=== PATIENT | female | born 1965 | race Caucasian/White ===

== ENCOUNTER 2021-06-14 16:11 | Emergency (ER) | payer MEDICARE, MEDICAID, SELFPAY ==
[2021-06-14 16:30] VITALS: BP 130/78; PULSE 97; RESP 18; TEMP 36.5; O2SAT 100
--- NOTE | 2021-06-14 17:15 | ED.URI ---
HPI - URI/Sore Throat General Chief Complaint: Upper Respiratory Infection Stated Complaint: cough,fever,chills Time Seen by Provider: 06/14/21 17:15 Source: patient and RN notes reviewed Mode of arrival: ambulatory Limitations: no limitations History of Present Illness HPI Narrative: 55-year-old female presents concern for 4-day history of cough, fever, chills. Reports Covid exposure. Reports she has been trying to stay hydrated and using Tylenol. MD elicited complaint: cough Related Data Allergies Allergy/AdvReac Type Severity Reaction Status Date / Time No Known Allergies Allergy Verified 06/14/21 17:24 Review of Systems Review of Systems: CONSTITUTIONAL: Reports malaise, chills or fever. EYES: Denies visual changes, redness, or discharge. ENT: Reports rhinorrhea, congestion, sinus pain. Denies otalgia and sore throat. CARDIOVASCULAR: Denies chest pain, palpitations, or edema. RESPIRATORY: Reports cough. Denies dyspnea. GASTROINTESTINAL: Denies abdominal pain, nausea, vomiting, diarrhea SKIN: Denies rash or itching. MUSCULOSKELETAL: Reports myalgia. NEUROLOGIC: Reports headache. All systems reviewed & are unremarkable except as noted in HPI and below PMFSH Comments At time of signature, agree with nursing past medical, surgical, social and family history. There is no relevant family history pertinent to the presenting complaint Exam Narrative: GENERAL: Well-appearing, well-nourished, and in no acute distress. HEAD: Normocephalic EYES: PERRLA, conjunctivae clear ENT: Nares clear, turbinates edematous and erythematous, clear discharge. Mucous membranes moist. TM pearly riddle with dull light reflex bilaterally; no tragal tenderness. Oropharynx not erythematous without lesions. Tonsils not enlarged and without exudate, no drooling, no hoarseness, no trismus, uvula midline. NECK: Supple. No lymphadenopathy CHEST: Clear to auscultation, breath sounds equal. No wheezing, rhonchi, rales, or stridor. No respiratory distress, speaks in full sentences. HEART: Regular rate and rhythm. No murmur heard. SKIN: Warm, dry, no rash. NEURO: Alert and oriented x3. PSYCH: Normal mood and affect Course Course Emergency Course: Patient is aware of diagnosis, understands and agrees to treatment plan. Anticipatory guidance given. Patient agrees to follow-up as directed and is aware of reasons to seek care at the emergency department. Portions of this record may have been created with voice recognition software Vital Signs Vital signs: Vital Signs Temperature 97.7 F 06/14/21 16:30 Pulse Rate 97 06/14/21 16:30 Respiratory Rate 18 06/14/21 16:30 Blood Pressure 130/78 06/14/21 16:30 Pulse Oximetry 100 06/14/21 16:30 Temperature 97.7 F 06/14/21 16:30 Pulse Rate 97 06/14/21 16:30 Respiratory Rate 18 06/14/21 16:30 Blood Pressure 130/78 06/14/21 16:30 Pulse Oximetry 100 06/14/21 16:30 Reviewed. MDM - URI/Sore Throat MDM Narrative Medical decision making narrative: Differential diagnosis considered: Gibson virus, strep pharyngitis, allergic rhinitis, upper respiratory tract infection, sinusitis, rhinosinusitis, nasopharyngitis. viral pharyngitis, otitis media, otitis externa, pneumonia, bronchitis, viral cough syndrome, viral syndrome, and influenza. Exam findings show no acute concerns or changes; patient is non-toxic appearing and is in no distress. Patient is appropriate for outpatient treatment and follow-up. Lab Data Attestation: I reviewed the patient's lab results. Critical Care Time Critical Care Time Critical Care Time: No Discharge Plan Discharge Clinical Impression: COVID-19 Patient Disposition: Home, Self-Care Condition: Stable Instructions: How to Recover from COVID-19 at Home (ED) Additional Instructions: Your rapid COVID test was positive today. The following recommendations have been made by the CDC and local Health Departments, regarding COVID-19: -Those individuals
== END 2021-06-14 17:35 | disposition home or self-care (01) ==
PROVIDERS: Emergency Provider Nurse Practitioner
DX: U07.1 COVID-19 (principal); R01.1 Cardiac murmur, unspecified
CPT/HCPCS: 87426; 99213; C9803; G0463

== ENCOUNTER 2022-04-07 10:43 | Emergency (ER) | payer MEDICARE, MEDICAID, SELFPAY ==
[2022-04-07 10:57] VITALS: BP 149/81; PULSE 91; RESP 16; TEMP 36.4; O2SAT 100
--- NOTE | 2022-04-07 11:10 | ED.URI ---
HPI - URI/Sore Throat General Chief Complaint: Upper Respiratory Infection Stated Complaint: uri Time Seen by Provider: 04/07/22 11:11 Source: patient and RN notes reviewed Mode of arrival: ambulatory Limitations: no limitations History of Present Illness HPI Narrative: 56 y/o female presented for c/o headache, fatigue, cough, and sinus pressure for over one week. Started with yellow eye drainage. Denies sob, wheezing, nausea, vomiting, fever or chills. States family has been sick with similar symptoms; they were negative for covid so she did not test. Taking saline spray and tylenol for symptoms. MD elicited complaint: cough Related Data Allergies Allergy/AdvReac Type Severity Reaction Status Date / Time No Known Allergies Allergy Verified 04/07/22 10:54 Review of Systems Review of Systems: CONSTITUTIONAL: Endorses malaise, denies chills, sweats, fever EYES: reports redness, drainage ENT: Reports rhinorrhea, congestion, sinus pain, denies epistaxis, otalgia, sore throat CARDIOVASCULAR: Denies chest pain, palpitations, edema RESPIRATORY: Reports cough, post nasal drainage. Denies dyspnea GASTROINTESTINAL: Denies abdominal pain, nausea, vomiting, diarrhea SKIN: Denies rash or itching MUSCULOSKELETAL: denies myalgia NEUROLOGIC: Denies headache Exam Narrative: GENERAL: Ill-appearing, nontoxic EYES: PERRLA, conjunctivae clear, no active yellow drainage ENT: Mucous membranes moist. TMs pearly riddle with dull light reflex bilaterally; no tragal tenderness. Oropharynx erythematous without lesions or exudate, no drooling, no hoarseness, no trismus, uvula midline. NECK: Supple. No lymphadenopathy CHEST: Clear to auscultation, breath sounds equal. HEART: Regular rate and rhythm. No murmur heard. SKIN: Warm, dry, no rash. NEURO: Alert and oriented x3. PSYCH: Normal mood and affect Course Course Emergency Course: Patient is aware of diagnosis, understands and agrees to treatment plan. Anticipatory guidance given. Patient agrees to follow-up as directed and is aware of reasons to seek care at the emergency department. Portions of this record may have been created with voice recognition software Level of Care: Express Care Visit Vital Signs Vital signs: Vital Signs Temperature 97.6 F 04/07/22 10:57 Pulse Rate 91 04/07/22 10:57 Respiratory Rate 16 04/07/22 10:57 Pulse Oximetry 100 04/07/22 10:57 Oxygen Delivery Room Air 04/07/22 10:57 Temperature 97.6 F 04/07/22 10:57 Pulse Rate 91 04/07/22 10:57 Respiratory Rate 16 04/07/22 10:57 Pulse Oximetry 100 04/07/22 10:57 Oxygen Delivery Room Air 04/07/22 10:57 reviewed MDM - URI/Sore Throat MDM Narrative Medical decision making narrative: Advised supportive measures and signs/symptoms to go to the ER. Pt is appropriate for outpt treatment and f/u. Differential Diagnosis Differential diagnosis: Likely upper respiratory infection, sinusitis and viral infection Discharge Plan Discharge Clinical Impression: Upper respiratory infection Patient Disposition: Home, Self-Care Condition: Stable Instructions: Antibiotic Form, Upper Respiratory Infection (ED) Additional Instructions: Recommend Flonase spray and Zyrtec (or Claritin/Aleksandra) Tylenol 1000mg every 8 hours as needed for pain Take medication as directed Symptomatic treatment includes: rest, push fluids, and humidifier Follow up with your primary care provider as needed in 1 week Go to the ER for worsening symptoms or concerns Prescriptions: New amoxicillin-pot clavulanate 875-125 mg tablet 1 tablet PO Q12H 7 Days Qty: 14 0RF Follow-up/Referrals: UNKNOWN,DOCTOR [Primary Care Provider] - Time of Disposition: 11:19
== END 2022-04-07 11:21 | disposition home or self-care (01) ==
PROVIDERS: Emergency Provider Nurse Practitioner Family
DX: J06.9 Acute upper respiratory infection, unspecified (principal)
CPT/HCPCS: 99213; G0463

== ENCOUNTER 2022-04-12 12:25 | Emergency (ER) | payer MEDICARE, MEDICAID, SELFPAY ==
--- NOTE | ~2022-04-12 | XR_ITS ---
EXAMINATION: XR chest 2V 04/12/2022 13:39 INDICATION: Wheezing and cough PROCEDURE: 2 view chest COMPARISON: Comparison to multiple prior studies sequentially, with oldest reviewed study dated 12/30. FINDINGS: The lungs are clear. The cardiomediastinal silhouette is within normal limits. There are no pleural effusions. There is no pneumothorax suspected. IMPRESSION: 1: NO ACUTE CARDIOPULMONARY DISEASE. Reviewed, dictated and finalized at location B.
[2022-04-12 12:36] VITALS: BP 144/109; PULSE 94; RESP 18; TEMP 36.3; O2SAT 100
--- NOTE | 2022-04-12 13:00 | ED.URI ---
HPI - URI/Sore Throat General Chief Complaint: Upper Respiratory Infection Stated Complaint: chest congestion Time Seen by Provider: 04/12/22 13:00 Source: patient, RN notes reviewed and old records reviewed Mode of arrival: ambulatory Limitations: no limitations History of Present Illness HPI Narrative: 56-year-old female presents to the [facility] feeling worse than she did 5 days ago. Was seen here and diagnosed with an upper respiratory/sinus infection and prescribed Augmentin. Patient states that she took a home COVID test which she reports was negative. Her granddaughter is positive with a virus and is being seen by the manager balance. MD elicited complaint: cough, sore throat, nasal congestion and sinus pain Related Data Allergies Allergy/AdvReac Type Severity Reaction Status Date / Time No Known Allergies Allergy Verified 04/07/22 10:54 Review of Systems Review of Systems: All systems reviewed & are unremarkable except as noted in HPI and below Constitutional: Constitutional: Reports as per HPI (Body aches), Denies chills, Reports fatigue and Reports fever(s) Eyes: Eyes: Reports no additional eye complaints ENT: Reports system reviewed and no additional complaints, except as documented Cardiovascular: Cardiovascular: Reports no additional cardiovascular complaints Respiratory: Respiratory: Reports as per HPI, Reports chest congestion and Reports cough Gastrointestinal: Gastrointestinal: Reports no additional gastrointestinal complaints Musculoskeletal: Musculoskeletal: Reports no additional musculoskeletal complaints Integumentary/Breasts: Skin/Breast: Reports system reviewed and no additional complaints, except as docu Neurologic: Reports system reviewed and no additional complaints, except as documented Psychiatric: Psychiatric: Reports no additional psychiatric complaints Allergic/Immunologic: Allergic/Immunologic: Reports no additional allergic/immunologic complaints PMFSH Comments At the time of my signature, I reviewed and agree with the nursing past medical, surgical, social, and family history. There is no relevant family history pertinent to the patient complaint. Exam Const: General: healthy appearing, no acute distress, alert and well nourished Nutritional Appearance: well nourished Orientation/consciousness: patient oriented x3 Limitations: no limitations HENMT: Head: normal to inspection Ears: external ears normal, TM's normal bilaterally and EAC's normal Face/Nose/Sinus: Normal external nose present and Normal nares present Face and sinus: normal facial exam Mouth: Yes Normal oral and palatal mucosa present, Yes lip normal and Yes moist mucous membranes Throat: posterior oropharynx normal and uvula midline Eyes: General: appearance normal, both eyes and all related structures Pupils: Equal, round and reactive pupils present Neck: Neck: normal visual inspection, no lymphadenopathy and no meningeal signs Chest: Chest palpation & inspection: normal inspection of the chest Resp: Effort & Inspection: normal respiratory effort and no use of accessory muscles Auscultation: no crackles, no rales, no rhonchi and wheezes expiratory wheezes and left upper Cardio: Rate: regular rate Rhythm: regular rhythm Skin: General skin exam: normal color Rashes: no rashes Wounds: no wounds Neuro: General: patient oriented x3, moves all extremities, no meningeal signs and no focal motor deficits Cranial nerves: Yes Equal, round and reactive pupils present Speech: normal speech Gait exam (Neuro): Normal gait present Extrem: General: normal to inspection, full ROM and capillary refill normal Psych: Appearance: grossly normal and well kempt Mental Status: mental status grossly normal Affect: normal affect Attitude: cooperative Thought content: Yes Normal thought content present Course Course Emergency Course: Discharge instructions reviewed with patient, as well as provided in writing per carol
== END 2022-04-12 13:50 | disposition home or self-care (01) ==
PROVIDERS: Emergency Provider Nurse Practitioner; PCP Family Medicine
DX: J10.1 Influenza due to other identified influenza virus with other respiratory manifestations (principal)
CPT/HCPCS: 71046; 87804; 99213; G0463

== ENCOUNTER 2022-05-28 18:10 | Emergency (ER) | payer MEDICARE, MEDICAID, SELFPAY ==
[2022-05-28 18:42] VITALS: BP 138/80; PULSE 89; RESP 16; TEMP 36.6; O2SAT 98
--- NOTE | 2022-05-28 19:03 | ED.SKABFB ---
HPI - Skin/Abscess/Foreign Bdy General Chief complaint: Skin/Abscess/Foreign Body Stated complaint: insect bite Time Seen by Provider: 05/28/22 19:04 Source: patient, RN notes reviewed and old records reviewed Mode of arrival: ambulatory Limitations: no limitations History of Present Illness HPI narrative: 56-year-old female presents weeks with redness and a wound that is not healing well for about a week. Had been washing it and using an antibiotic ointment. Has been leaving it open to air Related Data Allergies Allergy/AdvReac Type Severity Reaction Status Date / Time No Known Allergies Allergy Verified 04/07/22 10:54 Review of Systems Review of Systems: All systems reviewed & are unremarkable except as noted in HPI and below Constitutional: Constitutional: Reports no additional constitutional complaints Eyes: Eyes: Reports no additional eye complaints ENT: Reports system reviewed and no additional complaints, except as documented Cardiovascular: Cardiovascular: Reports no additional cardiovascular complaints, Denies chest pain and Denies dyspnea Respiratory: Respiratory: Reports no additional respiratory complaints, Denies chest congestion, Denies cough and Denies dyspnea Gastrointestinal: Gastrointestinal: Reports no additional gastrointestinal complaints, Denies abdominal pain, Denies nausea and Denies vomiting Musculoskeletal: Musculoskeletal: Reports no additional musculoskeletal complaints Integumentary/Breasts: Skin/Breast: Reports as per HPI and Reports erythema Neurologic: Reports system reviewed and no additional complaints, except as documented Psychiatric: Psychiatric: Reports no additional psychiatric complaints Allergic/Immunologic: Allergic/Immunologic: Reports no additional allergic/immunologic complaints PMFSH Comments At the time of my signature, I reviewed and agree with the nursing past medical, surgical, social, and family history. There is no relevant family history pertinent to the patient complaint. Exam Const: General: cooperative, healthy appearing, comfortable, no acute distress, well developed, alert and well nourished Nutritional Appearance: well nourished Orientation/consciousness: patient oriented x3 Limitations: no limitations HENMT: Head: normal to inspection Ears: hearing grossly normal bilaterally and external ears normal Face/Nose/Sinus: Normal external nose present, Normal nares present, Normal nasal mucous membranes and turbinates present and normal facial exam Face and sinus: normal facial exam Mouth: Yes Normal oral and palatal mucosa present, Yes lip normal and Yes moist mucous membranes Throat: posterior oropharynx normal and uvula midline Eyes: General: appearance normal, both eyes and all related structures Alignment and Position: alignment normal Periorbital: periorbital findings normal Conjunctivae: conjunctivae normal Pupils: Equal, round and reactive pupils present EOM: EOMs intact bilaterally Neck: Neck: normal visual inspection, full ROM, no lymphadenopathy and no meningeal signs Chest: Chest palpation & inspection: normal inspection of the chest Resp: Effort & Inspection: normal respiratory effort and able to speak in complete sentences Auscultation: clear to auscultation bilaterally, no crackles, no rales, no rhonchi and no wheezes Cardio: Rate: regular rate Rhythm: regular rhythm Back/Spine/Pelvis: Cervical Spine: cervical ROM normal Thoracic/Lumbar Spine: No thoracic spinal tenderness Skin: General skin exam: normal color and no rashes or lesions noted Lesions: no lesions Rashes: no rashes Other: Right posterior lower leg redness 4 x 2 and half with an open clear drainage of 1 and half by 1 cm. No swelling. No tenderness. Neuro: General: patient oriented x3, gait normal, tone normal, moves all extremities and no meningeal signs Cranial nerves: Yes Equal, round and reactive pupils present Cognition (Neuro): normal cognition Speech: normal sp
== END 2022-05-28 19:19 | disposition home or self-care (01) ==
PROVIDERS: Emergency Provider Nurse Practitioner; PCP Family Medicine
DX: L03.115 Cellulitis of right lower limb (principal); R01.1 Cardiac murmur, unspecified; I34.1 Nonrheumatic mitral (valve) prolapse; Z86.16 Personal history of COVID-19
CPT/HCPCS: 99213; G0463

== ENCOUNTER 2022-09-14 10:19 | Emergency (ER) | payer MEDICARE, MEDICAID, SELFPAY ==
[2022-09-14 10:33] VITALS: BP 120/67; PULSE 87; RESP 16; TEMP 36.6; O2SAT 100
--- NOTE | 2022-09-14 10:37 | ED.URI ---
HPI - URI/Sore Throat General Chief Complaint: Upper Respiratory Infection Stated Complaint: Sinus Source: patient and RN notes reviewed History of Present Illness HPI Narrative: 56 yo F presents to urgent care with complaints of congestion x 6 days. pt states she is having to sleep with her mouth open due to her congestion, causing her mouth and throat to be dry. Pt states she had a fever in the beginning of the week but nothing since. Pt denies any SOB, chest pain, ear pain, sore throat, vomiting, or diarrhea. Pt has taken Tylenol for her symptoms. Related Data Home Medications Medication Instructions Recorded Confirmed fluticasone propionate 50 intranasal 09/14/22 mcg/actuation nasal spray,suspension Allergies Allergy/AdvReac Type Severity Reaction Status Date / Time No Known Allergies Allergy Verified 09/14/22 10:36 Review of Systems Review of Systems: Pertinent positives and pertinent negatives per HPI. PMFSH Comments At the time of my signature, I reviewed and agree with the nursing past medical, surgical, social, and family history. There is no relevant family history pertinent to the patient complaint. Exam Narrative: GENERAL: This is a well-nourished, well-developed patient, in no apparent distress. HEAD: normocephalic, atraumatic. EYES: PERRL. Sclera clear/white. Vision is grossly intact. EARS: External ears normal, auditory canals clear and without drainage, TMs normal without perforation. Hearing grossly intact. NOSE: Congested. THROAT: Mucous membranes moist, posterior pharynx clear. NECK: Neck supple, non-tender without lymphadenopathy, masses or thyromegaly. CARDIOVASCULAR: Regular rate and rhythm without murmurs, gallops, or rubs. RESPIRATORY: Clear to auscultation. Breath sounds equal bilaterally. No wheezes, rales, or rhonchi. GASTROINTESTINAL: Abdomen soft, non-tender, nondistended. Bowel sounds are active. No hepato-splenomegaly, or palpable masses. No guarding. SKIN: warm, intact with no suspicious lesions or rash, good texture and turgor. NEURO: awake, alert, and oriented to person, place and time. There were no obvious focal neurologic abnormalities. Course Course Level of Care: Express Care Visit Vital Signs Vital signs: Vital Signs Temperature 97.9 F 09/14/22 10:33 Pulse Rate 87 09/14/22 10:33 Respiratory Rate 16 09/14/22 10:33 Blood Pressure 120/67 09/14/22 10:33 Pulse Oximetry 100 09/14/22 10:33 Oxygen Delivery Room Air 09/14/22 10:33 Temperature 97.9 F 09/14/22 10:33 Pulse Rate 87 09/14/22 10:33 Respiratory Rate 16 09/14/22 10:33 Blood Pressure 120/67 09/14/22 10:33 Pulse Oximetry 100 09/14/22 10:33 Oxygen Delivery Room Air 09/14/22 10:33 reviewed MDM - URI/Sore Throat MDM Narrative Medical decision making narrative: Return to urgent care or go to the ER for new or worsening symptoms. Avoid smoking/second-hand smoke. Continue to take Tylenol or Motrin for pain. Increase your Vitamin C intake. Use a humidifier or vaporizer at night. Take Medications as prescribed. Drink plenty of water. 8-10 glasses per day. Use flonase 2 times per day for 5 days then as needed Take mucinex 2 times per day and be sure to take with 8oz of water. Follow up with Primary provider if not getting better. Go to the ER for new or worsening symptoms. Pt was informed it would be ok to wait a few more days to see if her symptoms improved with OTC meds and Flonase BID before taking the Abx. Pt has Floanse at home. Pt gave verbal understanding. Differential Diagnosis Differential diagnosis: Likely upper respiratory infection, sinusitis and viral infection Critical Care Time Critical Care Time Critical Care Time: No Discharge Plan Discharge Clinical Impression: Sinusitis Qualifiers: Sinusitis location: unspecified location Chronicity: acute Recurrence: not specified as recurrent Qualified Code(s): J01.90 - Acute sinusitis, un
== END 2022-09-14 10:46 | disposition home or self-care (01) ==
PROVIDERS: Emergency Provider Nurse Practitioner Family; PCP Family Medicine
DX: J01.90 Acute sinusitis, unspecified (principal)
CPT/HCPCS: 99213; G0463

== ENCOUNTER 2022-11-22 10:45 | Emergency (ER) | payer MEDICARE, MEDICAID, SELFPAY ==
--- NOTE | 2022-11-22 10:51 | ED.URI ---
HPI - URI/Sore Throat General Chief Complaint: Upper Respiratory Infection Stated Complaint: Sore Throat Time Seen by Provider: 11/22/22 11:00 Source: patient Mode of arrival: ambulatory Limitations: no limitations History of Present Illness HPI Narrative: Patient is a 57-year-old female who presents with sore throat since last Friday. Also having runny nose, cough and intermittent low-grade fever. Patient has been taking a daily Zyrtec in taking Tylenol for pain/fever. Patient has been eating soft foods due to throat pain. Denies any ear pain, headache or shortness of breath. Patient states she has had prolonged COVID symptoms. Denies history of asthma, COPD, emphysema or diabetes. Patient takes a multivitamin every day but no other medication. Related Data Allergies Allergy/AdvReac Type Severity Reaction Status Date / Time No Known Allergies Allergy Verified 09/14/22 10:36 Review of Systems Review of Systems: All systems reviewed & are unremarkable except as noted in HPI and below Constitutional: Constitutional: Denies body ache(s), Denies chills, Denies fatigue, Reports fever(s), Denies headache(s), Denies malaise and Denies weakness Eyes: Eyes: Denies blurry vision, Denies itchy eyes and Denies loss of vision ENT: Denies otalgia, Denies headache(s), Reports nasal congestion, Denies sinus pain and Reports sore throat Cardiovascular: Cardiovascular: Denies chest pain, Denies irregular heart rhythm and Denies dyspnea Respiratory: Respiratory: Reports cough and Denies dyspnea Gastrointestinal: Gastrointestinal: Denies abdominal pain, Denies diarrhea, Denies nausea and Denies vomiting Musculoskeletal: Musculoskeletal: Denies back pain, Denies myalgias and Denies arthralgias Integumentary/Breasts: Skin/Breast: Denies pruritus and Denies rash Neurologic: Denies headache(s), Denies loss of vision and Denies weakness Psychiatric: Psychiatric: Reports no additional psychiatric complaints Endocrine: Endocrine: Denies fatigue Allergic/Immunologic: Allergic/Immunologic: Denies itchy eyes PMFSH Comments At time of signature, agree with nursing past medical, surgical, social and family history. There is no relevant family history pertinent to the presenting complaint. Exam Const: General: cooperative, healthy appearing, comfortable, no acute distress and well nourished Nutritional Appearance: well nourished Orientation/consciousness: patient oriented x3 Limitations: no limitations HENMT: Head: normal to inspection, normocephalic and atraumatic Ears: hearing grossly normal bilaterally, external ears normal, TM's normal bilaterally, EAC's normal and no periauricular adenopathy Face/Nose/Sinus: Normal external nose present, Abnormal mucous membranes and turbinates present erythematous bilateral and diffuse, normal facial exam, sinuses nontender and face symmetric Face and sinus: normal facial exam, sinuses nontender and face symmetric Mouth: Yes Normal oral and palatal mucosa present, Yes lip normal, Yes tongue normal, Yes Normal salivary glands and ducts present, Yes oropharynx normal and Yes moist mucous membranes Teeth and gingiva: dentition normal Throat: posterior oropharynx normal, tonsils normal and uvula midline Eyes: General: appearance normal, both eyes and all related structures Alignment and Position: alignment normal and position normal Periorbital: periorbital findings normal Eyelids: eyelids normal Pupils: Equal, round and reactive pupils present Neck: Neck: normal visual inspection, full ROM, no lymphadenopathy and supple Chest: Chest palpation & inspection: normal inspection of the chest and normal palpation of entire chest wall Resp: Effort & Inspection: normal respiratory effort and able to speak in complete sentences Auscultation: clear to auscultation bilaterally, no crackles, no rales, no rhonchi and no wheezes Cardio: Rate: regular rate Rhythm: regular rhythm Heart sounds: S1 normal heart s
[2022-11-22 11:02] VITALS: BP 114/63; PULSE 110; RESP 12; TEMP 35.7; O2SAT 100
== END 2022-11-22 11:30 | disposition home or self-care (01) ==
PROVIDERS: Emergency Provider Nurse Practitioner Family; PCP Family Medicine
DX: J06.9 Acute upper respiratory infection, unspecified (principal); R05.9 Cough, unspecified; I34.1 Nonrheumatic mitral (valve) prolapse; R01.1 Cardiac murmur, unspecified; Z86.16 Personal history of COVID-19
CPT/HCPCS: 87081; 87880; 99213; G0463

== ENCOUNTER 2022-12-06 13:16 | Emergency (ER) | payer MEDICARE, MEDICAID, SELFPAY ==
[2022-12-06 13:24] VITALS: BP 126/88; PULSE 102; RESP 16; TEMP 36.8; O2SAT 100
--- NOTE | 2022-12-06 13:24 | ED.URI ---
HPI - URI/Sore Throat General Chief Complaint: Upper Respiratory Infection Stated Complaint: Sinus Time Seen by Provider: 12/06/22 13:25 Source: patient Mode of arrival: ambulatory Limitations: no limitations History of Present Illness HPI Narrative: Patient is a 57-year-old female who presents with left facial swelling since Friday. Patient was seen here 11/22 for upper respiratory infection. Was given steroids and started taking allergy medicine. Patient states symptoms resolved and was doing yd work this weekend. Patient does report mild tenderness on palpation to face. Denies any changes in vision, numbness or tingling to phase or difficulty speaking. Related Data Allergies Allergy/AdvReac Type Severity Reaction Status Date / Time No Known Allergies Allergy Verified 09/14/22 10:36 Review of Systems Review of Systems: All systems reviewed & are unremarkable except as noted in HPI and below Constitutional: Constitutional: Denies body ache(s), Denies chills, Denies fatigue, Denies fever(s), Denies headache(s), Denies malaise and Denies weakness Eyes: Eyes: Denies blurry vision, Denies itchy eyes and Denies loss of vision ENT: Denies otalgia, Reports facial pain, Denies headache(s), Denies nasal congestion, Denies sinus pain, Denies sore throat and Reports other (Facial swelling) Cardiovascular: Cardiovascular: Denies chest pain, Denies irregular heart rhythm and Denies dyspnea Respiratory: Respiratory: Reports cough and Denies dyspnea Gastrointestinal: Gastrointestinal: Denies abdominal pain, Denies diarrhea, Denies nausea and Denies vomiting Musculoskeletal: Musculoskeletal: Denies back pain, Denies myalgias and Denies arthralgias Integumentary/Breasts: Skin/Breast: Denies pruritus and Denies rash Neurologic: Denies headache(s), Denies loss of vision and Denies weakness Psychiatric: Psychiatric: Reports no additional psychiatric complaints Endocrine: Endocrine: Denies fatigue Allergic/Immunologic: Allergic/Immunologic: Denies itchy eyes PMFSH Comments At time of signature, agree with nursing past medical, surgical, social and family history. There is no relevant family history pertinent to the presenting complaint. Exam Const: General: cooperative, healthy appearing, comfortable, no acute distress and well nourished Nutritional Appearance: well nourished Orientation/consciousness: patient oriented x3 Limitations: no limitations HENMT: Head: normal to inspection, normocephalic and atraumatic Ears: hearing grossly normal bilaterally, external ears normal, TM's normal bilaterally, EAC's normal and no periauricular adenopathy Face/Nose/Sinus: Normal external nose present, Normal nasal mucous membranes and turbinates present, normal facial exam, sinuses nontender and face symmetric Face and sinus: normal facial exam, no erythema, edema on the left malar area and Facial tenderness on exam of face and sinuses on the left malar area Mouth: Yes Normal oral and palatal mucosa present, Yes lip normal, Yes tongue normal, Yes Normal salivary glands and ducts present, Yes oropharynx normal and Yes moist mucous membranes Teeth and gingiva: dentition normal Throat: posterior oropharynx normal, tonsils normal and uvula midline Eyes: General: appearance normal, both eyes and all related structures Alignment and Position: alignment normal and position normal Periorbital: periorbital findings normal Eyelids: eyelids normal Pupils: Equal, round and reactive pupils present Neck: Neck: normal visual inspection, full ROM, no lymphadenopathy and supple Chest: Chest palpation & inspection: normal inspection of the chest and normal palpation of entire chest wall Resp: Effort & Inspection: normal respiratory effort and able to speak in complete sentences Auscultation: clear to auscultation bilaterally, no crackles, no rales, no rhonchi and no wheezes Cardio: Rate: regular rate Rhythm: regular rhythm Heart sounds: S1 normal hear
== END 2022-12-06 13:46 | disposition home or self-care (01) ==
PROVIDERS: Emergency Provider Nurse Practitioner Family; PCP Family Medicine
DX: J01.00 Acute maxillary sinusitis, unspecified (principal); R01.1 Cardiac murmur, unspecified; I34.1 Nonrheumatic mitral (valve) prolapse; Z86.16 Personal history of COVID-19
CPT/HCPCS: 99213; G0463

== ENCOUNTER 2023-05-06 11:30 | Observation (INO) | payer MEDICARE, MEDICAID, SELFPAY ==
[2023-05-06] VITALS (21 sets, daily range): BP systolic 114–155; BP diastolic 72–84; PULSE 88–99; RESP 12–18; TEMP 36.2–37.1; O2SAT 98–100; BMI 21.1
--- NOTE | ~2023-05-06 | US_ITS ---
EXAMINATION: US abdomen limited DATE: 05/07/2023 08:31 INDICATION: Possible gallbladder hydrops TECHNIQUE: Multiple grayscale and Doppler ultrasound images of the abdomen were obtained. COMPARISON: CT, 05/06/2023 FINDINGS: Bowel gas obscures visualization of the pancreas. The visualized portions of the pancreas a re unremarkable. The liver is normal with normal echogenicity and echotexture. No surface nodularity. Normal hepatopetal flow in the main portal vein. The gallbladder is normal with no abnormal wall thi ckening, pericholecystic fluid or stones. The normal common bile duct measures 6 mm. There was no son ographic Geller sign. IMPRESSION: 1. Normal sonographic study of the gallbladder. Reviewed, dictated and finalized at location F. RSITY MANAGER
--- NOTE | ~2023-05-06 | CT_ITS ---
EXAMINATION: CT abdomen pelvis w con DATE: 05/06/2023 17:45 INDICATION: jaundiced, anemic TECHNIQUE: Computed tomography (CT) of the abdomen and pelvis was performed with 100 mL Omnipaque-350 intravenous contrast. Automated exposure control and iterative reconstruction technique were employe d. The dose-length product was 246.22 mGy-cm. COMPARISON: None. FINDINGS: Lower thorax: Unremarkable Liver: Mild intrahepatic bile duct dilation. Biliary/Gallbladder: Gallbladder is borderline enlarged. No extrahepatic bile duct dilation. Pancreas: No mass or duct dilation. Spleen: Normal. Adrenals:No mass. Kidneys: No suspicious mass or obstructing stone. Dilated left renal pelvis. GI tract: Mildly dilated loops of small bowel in the lower abdomen, no transition point. No large bow el dilation. Appendix not confidently visualized. Mesentery/Peritoneum: No ascites, mass, or free air. Retroperitoneum: No mass. Pelvis: Pelvic organs are within normal limits. Soft Tissues: Soft tissues and body wall unremarkable. Bones: No acute osseous finding. IMPRESSION: Mild intrahepatic bile duct dilation. Borderline gallbladder hydrops. Dilated left renal pelvis, may represent chronic UPJ obstruction. Mild small bowel dilation in the lower abdomen without focal transition point. May represent enteriti s or ileus. Early obstruction not excluded. Reviewed, dictated and finalized at location K. INTERN IMPRESSION: Mild intrahepatic bile duct dilation. Borderline gallbladder hydrops. Dilated left renal pelvis, may represent chronic UPJ obstruction. Mild small bowel dilation in the lower abdomen without focal transition point. May represent enteritis or ileus. Early obstruction not excluded.
[2023-05-06 12:30] LABS: Basophils Absolute Auto 0.1 K/mm3 (0.0-0.1); Basophils Percent Auto 0.8 % (0.2-1.2); Eosinophils Absolute Auto 0.3 K/mm3 (0-0.3); Eosinophils Percent Auto 4.7 % (0-4.4); Hematocrit 26.6 % (37.0-47.0); Immature Granulocyte Absolute 0.02 K/mm3 (0.00-0.031); Immature Granulocyte Percent A 0.3 % (0-0.5); Lymphocytes Absolute Auto 0.96 K/mm3 (0.9-3.2); Lymphocytes Percent Auto 13.4 % (18.3-44.2); Mean Corpuscular HGB Conc 23.7 g/dl (32-36); Mean Corpuscular Hemoglobin 15.6 pg (26-34); Mean Corpuscular Volume 65.7 fl (80-100); Mean Platelet Volume 9.5 fl (7.4-10.4); Monocytes Absolute Auto 0.6 K/mm3 (0.1-0.6); Monocytes Percent Auto 7.6 % (2.6-8.5); Neutrophils Absolute Auto 5.3 K/mm3 (1.3-6.7); Neutrophils Percent Auto 73.2 % (45.5-73.1); Platelet Count Result 459 k/mm3 (150-375); Red Blood Count 4.05 M/mm3 (4.2-5.4); Red Cell Distribution Width 22.5 % (11.5-14.5); White Blood Count 7.2 K/mm3 (4.5-10.0)
[2023-05-06 12:36] LABS: Hemoglobin 6.3 g/dL (12.0-15.0)
[2023-05-06 12:37] LABS: Immature Reticulocyte Fraction 17.1 % (3.0-15.9); Reticulocyte Hemoglobin Conten 13.2 pg (28.2-35.7); Reticulocyte Percent 1.65 % (0.7-4.3); Reticulocytes Absolute 0.07 M/mm3 (0.02-0.1)
[2023-05-06 12:39] LABS: Alanine Aminotransferase 38 U/L (6-35); Albumin Level 4.2 g/dL (3.5-5.1); Alkaline Phosphatase 104 U/L (38-126); Anion Gap 10 mmol/L (8-16); Aspartate Amino Transferase 43 U/L (14-36); Bilirubin,Total 0.4 mg/dL (0.2-1.3); Blood Urea Nitrogen 10 mg/dL (7-17); Calcium 8.4 mg/dL (8.4-10.2); Carbon Dioxide 25 mmol/L (22-30); Chloride 105 mmol/L (98-107); Estimated CRCL calculation 92 ml/min; Estimated Glomerular Filt Rate > 60; Glucose 93 mg/dL (65-110); Potassium 4.1 mmol/L (3.4-5.0); Sodium 140 mmol/L (137-145)
[2023-05-06 12:41] LABS: Lactate Dehydrogenase 222 U/L (120-246)
[2023-05-06 12:42] LABS: INR 1.1; Prothrombin Time 14.2 Seconds (11.1-14.7)
[2023-05-06 12:43] LABS: Partial Thromboplastin Time 24.9 SECONDS (22.3-36.8)
[2023-05-06 12:49] LABS: Transferrin 321 mg/dL (206-381)
--- NOTE | 2023-05-06 12:57 | ED.RECABL ---
HPI - Recheck/Abnormal Lab/Rx General Chief Complaint: Recheck/Abnormal Lab/Rx Stated Complaint: needs transfusion Time Seen by Provider: 05/06/23 12:16 Source: patient and family (son) Limitations: no limitations History of Present Illness HPI narrative: Patient is a 57 year old who presents for her labs to be rechecked and possible blood transfusion. She was sent by her PA. She has a history of anemia but has never required a transfusion. Patient had labs checked by a nurses aide for alopecia related to covid that she had earlier in the month. They showed low Fe and low Hgb. 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 Patient has these results on her phone as follows: TIBC 429, WIBC 418, Fe 11, FeSaturation 3, Ferritin 2, Hgb 6.2. Patient had outpatient vein procedure performed in June and January but otherwise no large surgical procedures recently. Denies hemoptysis, hematuria, melena, hematochezia, vaginal bleeding. She has never had a colonoscopy but performed the Cologuard test which was normal. She has not been dizzy or lightheadeness, just tired/incrased fatigue. Denies chest pain, shortness of breath. States she has mitral valve prolapse. LMP 2000 ; partial hysterectomy. Patient adopted thus family hx unknown. Related Data Home Medications Medication Instructions Recorded Confirmed No Home Medications 05/06/23 05/06/23 Allergies Allergy/AdvReac Type Severity Reaction Status Date / Time No Known Allergies Allergy Verified 05/06/23 12:09 [facility] Past Medical History Medical History Anemia Surgical History Surgical History History of partial hysterectomy Family History Family History Other Adopted Social History Social History (Updated 05/07/23 @ 11:16 by Lilliana Kelly MD) Social History: Has a son Smoking status: Never smoker Second hand tobacco smoke exposure: No Alcohol intake: current Drinks per week: 1 Substance use: never Substance use type: does not use Lack of Transportation: No Lack of Food: Never True Current Housing: I Have Housing Concerned About Future Housing: No Difficulty Paying Gas/Electric Bills: No Difficulty Paying for Meds: No Currently Unemployed: No Education: Associate Degree Difficulty w/ Childcare or Family Care: No Spiritual care concerns: No Exam Narrative: GENERAL:well nourished, in no acute distress. HEAD: Normocephalic, atraumatic. Eyes: conjunctival pallor; no photophobia ENT: Nares clear, no rhinorrhea or epistaxis. NECK: Supple. No meningismus CHEST: No respiratory distress. Spekaing in full sentences HEART: Regular rate and rhythm. No murmur heard. Normal peripheral pulses. ABDOMEN: Soft, nontender to palpation, nondistended. EXTREMITIES: Normal range of motion. No edema. SKIN: Warm, dry, no rash. Appears slightly jaundiced NEURO: No focal deficits. Alert and oriented x3. PSYCH: Normal mood and affect. Course Vital Signs Vital signs: Vital Signs Temperature 98.7 F 05/06/23 12:01 Pulse Rate 96 05/06/23 12:01 Respiratory Rate 13 05/06/23 12:01 Blood Pressure 143/77 H 05/06/23 12:01 Pulse Oximetry 100 05/06/23 12:01 Oxygen Delivery Room Air 05/06/23 12:01 Temperature 98.8 F 05/07/23 06:00 Pulse Rate 78 05/07/23 09:13 Respiratory Rate 16 05/07/23 06:00 Blood Pressure 132/76 05/07/23 06:00 Pulse Oximetry 97 05/07/23 09:13 Oxygen Delivery Room Air 05/07/23 09:13 MDM - Recheck/Abnormal Lab/Rx MDM Narrative Medical decision making narrative: Patient presents for labs to be rechecked and possible need of blood transfusion. In anticipation of possible transfusion, anemia work up labs are ordered. Patient has conjunctival pallor b
[2023-05-06 12:58] LABS: Anisocytosis 2+ (NORMAL); Hypochromasia 2+ (NORMAL); Platelet Estimate Adequate (Adequate); Target Cells 1+ (NORMAL)
[2023-05-06 12:59] LABS: Macrocytosis 1+ (NORMAL); Ovalocytes 1+ (NORMAL); Schistocytes Rare (NORMAL)
[2023-05-06 13:45] LABS: Folic Acid 6.2 ng/mL (2.76->20)
[2023-05-06] MEDS: SODIUM CHLORIDE 0.9% IV 250 ML 30 ML IV CONT ×2 (14:19→18:13)
[2023-05-06] MEDS: TUBING, BLOOD PLUM PUMP TUBING 1 EACH XX ×2 (14:20→18:12)
[2023-05-06 16:35] LABS: Hematocrit 25.8 % (37.0-47.0)
[2023-05-06 16:38] LABS: Hemoglobin 6.6 g/dL (12.0-15.0)
--- NOTE | 2023-05-06 19:05 | ADMGEN ---
This patient, Viktoriya Laurent, was admitted to 3 [facility] Surg Room 330-02. Patient/family oriented to hospital policies and general routines including ID bracelet, bed and alarms, visiting hours, pain management, procedures, bathroom and other care routines, personal items, smoking policy, room service/diet, and visiting hours. Information on how to activate the Rapid Response Team has been discussed. Patient/Family are encouraged to report perceived risks to care and to ask questions if they do not understand what they are told or what they should do.
--- NOTE | 2023-05-06 20:28 | PM.IMHP ---
H&P: HPI History of Present Illness Date/Time: 05/06/23 20:28 Chief Complaint: Low hemoglobin Narrative: This is a 57-year-old female with past medical history significant for chronic iron deficiency anemia, patient is a vegetarian, COVID. Patient on normal routine err E lab work was found to be anemic and was sent over to the emergency room for evaluation. Patient is now receiving blood transfusion. States that has been feeling tired, fatigued, denies any hematemesis, coffee-ground emesis, melena, bright red blood per rectum, nausea shortness of breath, no palpitations, no dizziness, no lightheadedness, no fevers no rigors no chills. Initial hemoglobin was 6.6 MCV 65. EXAMINATION: CT abdomen pelvis w con DATE: 05/06/2023 17:45 INDICATION: jaundiced, anemic TECHNIQUE: Computed tomography (CT) of the abdomen and pelvis was performed with 100 mL Omnipaque-350 intravenous contrast. Automated exposure control and iterative reconstruction technique were employed. The dose-length product was 246.22 mGy-cm. COMPARISON: None. FINDINGS: Lower thorax: Unremarkable Liver: Mild intrahepatic bile duct dilation.? Biliary/Gallbladder: Gallbladder is borderline enlarged. No extrahepatic bile duct dilation. Pancreas: No mass or duct dilation. Spleen: Normal. Adrenals:No mass. Kidneys: No suspicious mass or obstructing stone. Dilated left renal pelvis. GI tract: Mildly dilated loops of small bowel in the lower abdomen, no transition point. No large bowel dilation. Appendix not confidently visualized. Mesentery/Peritoneum: No ascites, mass, or free air. Retroperitoneum: No mass. Pelvis: Pelvic organs are within normal limits. Soft Tissues: Soft tissues and body wall unremarkable. Bones:? No acute osseous finding. IMPRESSION: Mild intrahepatic bile duct dilation. Borderline gallbladder hydrops. Dilated left renal pelvis, may represent chronic UPJ obstruction. Mild small bowel dilation in the lower abdomen without focal transition point. May represent enteritis or ileus. Early obstruction not excluded. Review of Systems Review of Systems: Low hemoglobin, fatigue. Constitutional: Constitutional: Denies chills, Reports fatigue, Denies fever(s), Denies malaise, Denies night sweats and Denies weakness Eyes: Eyes: Denies change in vision ENT: Denies dysphagia and Denies odynophagia Cardiovascular: Cardiovascular: Denies chest pain, Denies radiating jaw, neck or arm pain, Denies palpitations and Denies dyspnea Respiratory: Respiratory: Denies cough and Denies excessive phlegm production Gastrointestinal: Gastrointestinal: Denies abdominal pain, Denies melena, Denies hematochezia, Denies coffee ground emesis, Denies GI cramping, Denies dyspepsia, Denies heartburn, Denies diarrhea, Denies nausea and Denies vomiting Genitourinary: Genitourinary: Denies dysuria Musculoskeletal: Musculoskeletal: Denies back pain and Denies arthralgias Integumentary/Breasts: Skin/Breast: Denies rash Neurologic: Denies vertigo, Denies dizziness, Denies focal weakness and Denies Sensory deficit (Neuro) Psychiatric: Psychiatric: Reports no additional psychiatric complaints and Reports as per HPI Endocrine: Endocrine: Denies change in libido, Denies cold intolerance, Denies fatigue, Denies flushing, Denies heat intolerance, Denies polyphagia, Denies polydipsia and Denies palpitations Hematologic/Lymphatic: Hematologic/Lymphatic: Reports no additional hematologic/lymphatic complaints and Reports as per HPI Allergic/Immunologic: Allergic/Immunologic: Reports no additional allergic/immunologic complaints and Reports as per HPI PMFSH Social History Social History Smoking status: Never smoker Second hand tobacco smoke exposure: No Alcohol intake: current Drinks per week: 1 Substance use: never Substance use type: does not use Lack of Transportation: No Lack of Food: Never True C
[2023-05-06 23:40] LABS: Iron 17 ug/dL (37-170)
[2023-05-06 23:50] LABS: Percent Iron Saturation 4 % (20-50)
[2023-05-07 00:17] LABS: Ferritin 2.94 ng/mL (11.1-264)
[2023-05-07 06:00] VITALS: BP 132/76; PULSE 86; RESP 16; TEMP 37.1; O2SAT 98
[2023-05-07 06:22] LABS: Hematocrit 30.6 % (37.0-47.0); Hemoglobin 8.4 g/dL (12.0-15.0); Mean Corpuscular HGB Conc 27.5 g/dl (32-36); Mean Corpuscular Hemoglobin 19.1 pg (26-34); Mean Corpuscular Volume 69.7 fl (80-100); Platelet Count Result 361 k/mm3 (150-375); Red Blood Count 4.39 M/mm3 (4.2-5.4); Red Cell Distribution Width 23.9 % (11.5-14.5); White Blood Count 5.5 K/mm3 (4.5-10.0)
[2023-05-07 09:13] VITALS: PULSE 78; O2SAT 97
[2023-05-07 14:00] VITALS: BP 138/75; PULSE 90; RESP 18; TEMP 36.5; O2SAT 100
[2023-05-07 14:30] LABS: Hematocrit 31.3 % (37.0-47.0); Hemoglobin 8.7 g/dL (12.0-15.0)
[2023-05-07] MEDS: IRON SUCROSE COMPLEX 500 MG in SODIUM CHLORIDE 0.9% IV 250 ML 78.57 MG IVPB (14:48)
--- NOTE | 2023-05-07 14:57 | PM.DS ---
DS: Admitting Diagnosis Discharge Date 05/07/23 Admitting Diagnosis Anemia DS: Discharge Diagnosis Discharge Diagnosis (1) Hypochromic microcytic anemia: Code(s): D50.9 - Iron deficiency anemia, unspecified Status: Acute DS: Summary Hospital Course Hospital Course: This is a 57-year-old female past medical history of chronic iron deficiency anemia. She is not menstruating and has a history of a hysterectomy. Patient is a vegetarian. Patient was having normal lab work done when she was found to have a very low hemoglobin and was sent to the ED to be evaluated. Her hemoglobin was found to be 6.3 and she was given [address] of the abdomen pelvis revealed mild intrahepatic bile duct dilation, dilated renal pelvis and small-bowel dilation and lower abdomen. There is no evidence of bleed in the abdomen. Right upper quadrant ultrasound negative for acute cholecystitis. She denies any bright red blood per rectum, melena or dark stools. Over the past month she had been feeling progressively more tired but otherwise nothing out of the normal for her. anemia labs revealed an iron of 17, % saturation of 4 and ferritin of 2.9. She received 1 infusion of iron and advised to take daily supplementation. Her B12 and folate were within a good range. After patient's transfusion her hemoglobin was 8.4 and repeat 6 hours later was 8.7. Patient feeling much better. Advised to follow-up with her PCP within the next week. She is planned to have a colonoscopy in the upcoming weeks. Labs and vital signs are stable and she is medically clear for discharge at this time. Time Spent with Patient Time attestation: Total time spent providing and/or coordinating discharge services: Exam Narrative: GENERAL: Comfortable, no acute distress HENMT: moist mucous membranes EYES: EOM intact b/l NECK: no lymphadenopathy RESPIRATORY: clear to auscultation CARDIO: RRR GI: soft, nontender, bowel sounds present SKIN: no rashes EXTREMITIES: no edema, redness or tenderness DS: Data Data Completed and Pending Labs on day of discharge: Labs from last 24 hours 05/07/23 05/07/23 05/06/23 14:22 05:50 16:26 WBC 5.5 RBC 4.39 Hgb 8.7 L 8.4 L 6.6 L* Hct 31.3 L 30.6 L 25.8 L MCV 69.7 L D MCH 19.1 L D MCHC 27.5 L RDW 23.9 H Plt Count 361 MPV 9.0 Iron TIBC % Saturation Ferritin TSH (Reflex) Blood Type Antibody Screen Crossmatch 05/06/23 05/06/23 15:27 12:17 WBC RBC Hgb Cancelled Hct Cancelled MCV MCH MCHC RDW Plt Count MPV Iron 17 L TIBC 446 % Saturation 4 L Ferritin 2.94 L TSH (Reflex) 1.940 Blood Type A Positive Antibody Screen Negative Crossmatch See Detail Discharge Plan Discharge Attending physician on discharge: Rafi Hammonds Discharging Clinician: Merna Herrera Patient Disposition: Home, Self-Care Activity: as tolerated Diet: regular Discharge Instructions: Discharge disposition: Take medications as prescribed Advise iron supplementation as an outpatient. To help with constipation can take MiraLax or Colace tablet as needed. Please take Vitamin C, such as orange juice, with iron supplement. Do not take Iron supplement with milk Monitor blood pressures Avoid social areas, you wear a mask when in social settings Encouraged to continue with yearly vaccinations Return to the emergency department if he developed sudden shortness of breath, chest pain, dizziness, loss of consciousness, nausea, vomiting, upset stomach or intractable diarrhea Return to the emergency department if you develop fever greater than 100.4 Outpatient labs ordered and advise repeat labs in 1 week. Can follow up with PCP or GI reguarding lab results. Please follow-up with GI as an outpatient. Contact information attached. Follow-up with the primary care physician within 1-2 weeks Thank you for choosing
== END 2023-05-07 18:50 | disposition home or self-care (01) ==
LOC: ANHED 12:31 → ANH3MEDSUR 05-07 02:16
PROVIDERS: Emergency Medicine; Internal Medicine Critical Care Medicine; Physician Assistant; Admitting Provider Internal Medicine; Emergency Provider Student in an Organized Health Care Education/Training Program; PCP Family Medicine; Visit Provider Internal Medicine
DX: D50.9 Iron deficiency anemia, unspecified (principal); K83.9 Disease of biliary tract, unspecified; N28.89 Other specified disorders of kidney and ureter; K63.89 Other specified diseases of intestine; F10.90 Alcohol use, unspecified, uncomplicated; L65.9 Nonscarring hair loss, unspecified; Z86.16 Personal history of COVID-19
CPT/HCPCS: 36415; 36430; 74177; 76705; 80053; 82607; 82728; 82746; 83540; 83550; 83615; 84443; 84466; 85014; 85018; 85025; 85027; 85046; 85610; 85730; 86850; 86900; 86901; 86923; 96360; 96361; 96365; 96366; 99285; G0378; J1756; J7050; P9016; Q9967

== ENCOUNTER 2023-06-23 10:51 | Emergency (ER) | payer MEDICARE, MEDICAID, SELFPAY ==
[2023-06-23 11:05] VITALS: BP 125/91; PULSE 89; RESP 16; TEMP 37.2; O2SAT 100
--- NOTE | 2023-06-23 11:09 | ED.FEMALEGU ---
HPI - Female Genitourinary General Chief complaint: Abdominal Pain Stated complaint: right side pain Time Seen by Provider: 06/23/23 11:09 Source: patient Mode of arrival: ambulatory Limitations: no limitations History of Present Illness HPI Narrative: 57-year-old female presents with complaint of a mild umbilical pain that started 2 days ago. Yesterday pain moved to right lower quadrant, nausea last night, woke up feeling bloated, right lower quadrant pain worse today. Afebrile. No urinary symptoms. Reports having normal bowel movements. All systems reviewed and negative except as noted above. Related Data Allergies Allergy/AdvReac Type Severity Reaction Status Date / Time No Known Allergies Allergy Verified 06/23/23 11:09 Review of Systems Review of Systems: CONSTITUTIONAL: Denies fever, chills, or sweats. EYES: Denies visual changes, redness, or discharge. ENT: Denies rhinorrhea, congestion, sore throat, or otalgia. CARDIOVASCULAR: Denies chest pain, palpitations, or edema. RESPIRATORY: Denies cough or dyspnea. GASTROINTESTINAL: Reports abdominal pain, nausea. Denies vomiting, or diarrhea. GENITOURINARY: Denies dysuria or hematuria. SKIN: Denies rash or itching. MUSCULOSKELETAL: Denies back pain, joint pain, or myalgia. NEUROLOGIC: Denies headache, numbness, or weakness. PSYCHIATRIC: Denies anxiety or depression. All other systems reviewed are negative, except as documented in HPI. [facility] Past Medical History Medical History Anemia Surgical History Surgical History History of partial hysterectomy Family History Family History Other Adopted Social History Social History (Updated 05/07/23 @ 11:16 by Lilliana Kelly MD) Social History: Has a son Smoking status: Never smoker Second hand tobacco smoke exposure: No Alcohol intake: current Drinks per week: 1 Substance use: never Substance use type: does not use Lack of Transportation: No Lack of Food: Never True Current Housing: I Have Housing Concerned About Future Housing: No Difficulty Paying Gas/Electric Bills: No Difficulty Paying for Meds: No Currently Unemployed: No Education: Associate Degree Difficulty w/ Childcare or Family Care: No Living arrangements: with family Spiritual care concerns: No Comments At time of signature, agree with nursing past medical, surgical, social and family history. There is no relevant family history pertinent to the presenting complaint. Exam Narrative: GENERAL: This is a well-nourished, well-developed patient, in no apparent distress. HEAD: normocephalic, atraumatic. EYES: PERRL. Sclera clear/white. Vision is grossly intact. EARS: External ears normal NOSE: External nose normal NECK: Neck supple, non-tender without lymphadenopathy, masses or thyromegaly. CARDIOVASCULAR: Regular rate and rhythm without murmurs, gallops, or rubs. RESPIRATORY: Clear to auscultation. Breath sounds equal bilaterally. No wheezes, rales, or rhonchi. GASTROINTESTINAL: tender on palpation to right lower quadrant, guarding , with mild distention. Bowel sounds are active. No hepato-splenomegaly, or palpable masses. SKIN: warm, Dry, intact with no suspicious lesions or rash, good texture and turgor. NEURO: awake, alert, and oriented to person, place and time. There were no obvious focal neurologic abnormalities. EXTREMITIES: No joint tenderness, effusion, or edema noted. Course Course Level of Care: Express Care Visit Vital Signs Vital signs: Vital Signs Temperature 37.2 C 06/23/23 11:05 Pulse Rate 89 06/23/23 11:05 Respiratory Rate 16 06/23/23 11:05 Blood Pressure 125/91 H 06/23/23 11:05 Pulse Oximetry 100 06/23/23 11:05 Oxygen Delivery Room Air 06/23/23 11:05 Temperature 3
== END 2023-06-23 11:19 | disposition short-term general hospital (02) ==
PROVIDERS: Emergency Provider Nurse Practitioner Family; PCP Family Medicine
DX: R10.31 Right lower quadrant pain (principal); D64.9 Anemia, unspecified; Z90.711 Acquired absence of uterus with remaining cervical stump
CPT/HCPCS: 81003; 99212; G0463

== ENCOUNTER 2023-06-23 11:45 | Emergency (ER) | payer MEDICARE, MEDICAID, SELFPAY ==
--- NOTE | ~2023-06-23 | CT_ITS ---
EXAMINATION: CT abdomen pelvis w con DATE: 06/23/2023 14:33 INDICATION: Abdominal pain. TECHNIQUE: Computed tomography (CT) of the abdomen and pelvis was performed with 100 mL Omnipaque 350 intravenous contrast. Automated exposure control and iterative reconstruction technique were employe d. The dose-length product was 247.78 mGy-cm. COMPARISON: CT abdomen and pelvis 05/06/2023 FINDINGS: The visualized portions of the lung bases are clear without pneumonia or pleural effusion. The heart size is normal. No pericardial effusion. The liver, gallbladder, spleen, pancreas, and left adrenal gland are normal. Again seen is thickening of right adrenal gland, likely benign. Right kidn ey is normal. There is mild left hydronephrosis. There are no dilated loops of bowel. The appendix is normal. There are no pathologically enlarged lymph nodes. No ascites. There is mild thoracolumbar sp ondylosis. IMPRESSION: 1. Chronic mild left hydronephrosis with transition point at the ureteropelvic junction. Reviewed, dictated and finalized at location [facility]
[2023-06-23 11:54] VITALS: BP 123/73; PULSE 96; RESP 18; TEMP 36.4; O2SAT 97
--- NOTE | 2023-06-23 12:18 | ED.GENADULT ---
HPI - General Adult General Chief complaint: Abdominal Pain <Elizabeth Bonds October, Last Filed: 06/25/23 20:06> Stated complaint: r/o appy abd pain <Elizabeth Bonds October, Last Filed: 06/25/23 20:06> Time Seen by Provider: 06/23/23 18:00 <Elizabeth Bonds October, Last Filed: 06/25/23 20:06> History of Present Illness HPI narrative: Viktoriya Laurent is a 57 y/o female with PMHx of SYMONE and is on iron daily, who present with complaints mid abdominal pain that started 2 days ago, then yesterday it started to go to the right lower quadrant and last night she felt nauseated and didn't sleep well because the pain was getting worse. Denies changes with urine Reports of diarrhea for two days. + rebound tenderness to RLQ - last ate around 0700 <Elizabeth Bonds October, Last Filed: 06/25/23 20:06> Related Data Allergies/adverse reactions: Allergies Allergy/AdvReac Type Severity Reaction Status Date / Time No Known Allergies Allergy Verified 06/23/23 11:09 <Elizabeth Bonds October, Last Filed: 06/25/23 20:06> Review of Systems Review of Systems: All systems reviewed & are unremarkable except as noted in HPI and below <Elizabeth Bonds October, Last Filed: 06/25/23 20:06> PMFSH Past Medical History Medical History: Medical History Anemia <Elizabeth Bonds October, Last Filed: 06/25/23 20:06> Surgical History Surgical History: Surgical History History of partial hysterectomy <Elizabeth Bonds October, Last Filed: 06/25/23 20:06> Family History Family History: Family History Other Adopted <Elizabeth Bonds October, Last Filed: 06/25/23 20:06> Social History Social History: Social History (Updated 05/07/23 @ 11:16 by Lilliana Kelly MD) Social History: Has a son Smoking status: Never smoker Second hand tobacco smoke exposure: No Alcohol intake: current Drinks per week: 1 Substance use: never Substance use type: does not use Lack of Transportation: No Lack of Food: Never True Current Housing: I Have Housing Concerned About Future Housing: No Difficulty Paying Gas/Electric Bills: No Difficulty Paying for Meds: No Currently Unemployed: No Education: Associate Degree Difficulty w/ Childcare or Family Care: No Living arrangements: with family Spiritual care concerns: No <Elizabeth Rawls, SEAFOOD PROCESS WORKER - Last Filed: 06/25/23 20:06> Exam Narrative: GENERAL: Well-appearing, well-nourished, and in no acute distress. HEAD: Normocephalic, atraumatic. EYES: PERRLA and EOMI. ENT: Nares clear, no rhinorrhea or epistaxis. Mucous membranes moist. Oropharynx without tonsillar hypertrophy exudate or other lesions. NECK: Supple. No adenopathy or masses. CHEST: No respiratory distress. Clear to auscultation. No wheezes rales or rhonchi HEART: Regular rate and rhythm. No murmur heard. Normal peripheral pulses. ABDOMEN: Soft, nontender, nondistended, normal active bowel sounds. MSK: Normal range of motion. No edema. SKIN: Warm, dry, no rash. NEURO: Alert and oriented x3. No focal deficits. PSYCH: Normal mood and affect. <Adria Meadows PA-C - Last Filed: 06/23/23 19:34> Course Vital Signs Vital signs: Vital Signs Temperature 36.4 C 06/23/23 11:54 Pulse Rate 96 06/23/23 11:54 Respiratory Rate 18 06/23/23 11:54 Blood Pressure 123/73 06/23/23 11:54 Pulse Oximetry 97 06/23/23 11:54 Temperature 36.4 C 06/23/23 11:54 Pulse Rate 70 06/23/23 18:34 Respiratory Rate 18 06/23/23 18:34 Blood Pressure 110/72 06/23/23 18:34 Pulse Oximetry 100 06/23/23 18:34 <Elizabeth Rawls, SEAFOOD PROCESS WORKER - Last Filed: 06/25/23 20:06> Vital Signs Temperature 36.4 C 06/23/23 11:54 Pulse Rate 96 06/23/23 11:54 Respiratory Rate 18 06/23/23 11:54 Blood Pressure 123/73 01
[2023-06-23] MEDS: ONDANSETRON INJ 4 MG/2 ML VIAL IV PUSH (14:16)
[2023-06-23 14:32] LABS: Basophils Absolute Auto 0.1 K/mm3 (0.0-0.1); Basophils Percent Auto 0.9 % (0.2-1.2); Eosinophils Absolute Auto 0.2 K/mm3 (0-0.3); Eosinophils Percent Auto 3.5 % (0-4.4); Hematocrit 41.1 % (37.0-47.0); Hemoglobin 12.1 g/dL (12.0-15.0); Immature Granulocyte Absolute 0.01 K/mm3 (0.00-0.031); Immature Granulocyte Percent A 0.2 % (0-0.5); Lymphocytes Absolute Auto 1.26 K/mm3 (0.9-3.2); Mean Corpuscular HGB Conc 29.4 g/dl (32-36); Mean Corpuscular Hemoglobin 25.2 pg (26-34); Mean Corpuscular Volume 85.4 fl (80-100); Mean Platelet Volume 9.3 fl (7.4-10.4); Monocytes Absolute Auto 0.4 K/mm3 (0.1-0.6); Monocytes Percent Auto 6.6 % (2.6-8.5); Neutrophils Absolute Auto 3.8 K/mm3 (1.3-6.7); Neutrophils Percent Auto 66.8 % (45.5-73.1); Platelet Count Result 346 k/mm3 (150-375); Red Blood Count 4.81 M/mm3 (4.2-5.4); White Blood Count 5.7 K/mm3 (4.5-10.0)
[2023-06-23 14:44] LABS: Alanine Aminotransferase 48 U/L (6-35); Alkaline Phosphatase 83 U/L (38-126); Anion Gap 7 mmol/L (8-16); Aspartate Amino Transferase 44 U/L (14-36); Bilirubin,Total 0.3 mg/dL (0.2-1.3); Blood Urea Nitrogen 10 mg/dL (7-17); Calcium 8.3 mg/dL (8.4-10.2); Carbon Dioxide 28 mmol/L (22-30); Chloride 103 mmol/L (98-107); Estimated CRCL calculation 64 ml/min; Estimated Glomerular Filt Rate > 60; Glucose 99 mg/dL (65-110); Lipase 159 U/L (23-300); Potassium 4.1 mmol/L (3.4-5.0); Sodium 138 mmol/L (137-145)
[2023-06-23 14:45] LABS: Lactic Acid Reflex 0.8 mmol/L (0.7-2.0)
[2023-06-23 15:16] LABS: Anisocytosis 2+ (NORMAL); Hypochromasia 1+ (NORMAL); Platelet Estimate Adequate (Adequate); Poikilocytosis 1+ (NORMAL); Schistocytes Rare (NORMAL)
[2023-06-23 16:34] VITALS: BP 111/77; PULSE 67; RESP 16; O2SAT 100
[2023-06-23 18:04] LABS: Bilirubin Urine Negative (Negative); Blood Urine Negative (Negative); Color Urine Yellow (Yellow); Glucose Urine UA Negative (Negative); Ketones Urine Negative (Negative); Leukocyte Esterase Ur Negative LEU/UL (Negative); Nitrate Urine Negative (Negative); Protein Urine Negative (Negative); Urobilinogen Urine 0.2 mg/dL (<2.0); pH Urine 5.5 (5.0-9.0)
[2023-06-23 18:05] LABS: Appearance Urine Clear (Clear)
[2023-06-23 18:06] LABS: Add Urine Microscopic? NO
[2023-06-23 18:34] VITALS: BP 110/72; PULSE 70; RESP 18; O2SAT 100
[2023-06-27 11:06] LABS: Estimated CRCL calculation 64 ml/min; Estimated Glomerular Filt Rate > 60
== END 2023-06-23 18:36 | disposition home or self-care (01) ==
PROVIDERS: Nurse Practitioner Family; Emergency Provider Physician Assistant; PCP Family Medicine
DX: R10.31 Right lower quadrant pain (principal); D50.9 Iron deficiency anemia, unspecified; Z90.711 Acquired absence of uterus with remaining cervical stump
CPT/HCPCS: 36415; 74177; 80053; 81003; 82565; 83605; 83690; 85025; 96374; 99284; J2405; Q9967

== ENCOUNTER 2023-07-16 06:04 | Day surgery (SDC) | payer MEDICARE, MEDICAID, SELFPAY ==
[2023-06-20 12:04] VITALS: BMI 21.3
[2023-06-20 13:59] VITALS: BMI 21.6
[2023-07-01 08:45] VITALS: BMI 21.6
[2023-07-16 07:03] VITALS: BMI 21.8
--- NOTE | 2023-07-16 07:15 | WPDANESEPPF ---
Anes - Initial Pre Proc Eval Procedure: Operation Date: 07/16/23 08:30 Proposed Procedures p Screening Colonoscopy - Iam Flores MD Date/Time: 07/16/23 07:15 Surgeon: Iam Flores MD Pre Op Diagnosis: Neoplasm Screening Patient Data Age: 57 Gender: F Height: 1.65 m Weight: 59.5 kg Allergies Allergy/AdvReac Type Severity Reaction Status Date / Time No Known Allergies Allergy Verified 07/16/23 07:01 Home Medications Medication Instructions Recorded Confirmed Type ferrous sulfate 325 mg (65 mg 325 mg PO DAILY #30 tabs 05/07/23 07/16/23 Rx iron) tablet Patient hx anesthesia problems: none Family hx anesthesia problems: none Results Review: All pre-operative results and documents have been reviewed as part of the pre-operative evaluation. [facility] Past Medical History Medical History (Updated 07/16/23 @ 07:19 by Iam Flores MD) Anemia MVP (mitral valve prolapse) PVCs (premature ventricular contractions) Surgical History Surgical History History of partial hysterectomy Family History Family History Other Adopted Social History Social History (Updated 05/07/23 @ 11:16 by Lilliana Kelly MD) Social History: Has a son Smoking status: Never smoker Second hand tobacco smoke exposure: No Alcohol intake: current Drinks per week: 1 Alcohol use details: OCCASIONAL GLASS OF WINE Substance use: never Substance use type: does not use Lack of Transportation: No Lack of Food: Never True Current Housing: I Have Housing Concerned About Future Housing: No Difficulty Paying Gas/Electric Bills: No Difficulty Paying for Meds: No Currently Unemployed: No Education: Associate Degree Difficulty w/ Childcare or Family Care: No Living arrangements: with family Spiritual care concerns: No Anes - Eval Final PreProcedure Day of Procedure 07/16/23 07:15 Patient weight: normal Heart: regular rate and rhythm Lungs: clear to auscultation and normal air movement Airway: Mallampati scale class II Neurological: alert and oriented Last oral intake: >/= 8 hours ASA classification: II Emergent: no Anesthetic plan: proceed Anesthesia type and monitoring: general GIVS and standard monitoring Results Review: All pre-operative results and documents have been reviewed as part of the pre-operative evaluation. Informed Consent: The patient's anesthetic plan and its attendant risks and benefits were discussed with the patient/family/POA. Questions were solicited and answers provided to the satisfaction of the patient/family/POA.
--- NOTE | 2023-07-16 07:17 | P.HP_ITS ---
History of Present Illness History of Present Illness Consent: Risks, benefits, and alternatives have been discussed and questions answered. Patient agrees to proceed with procedure. Chief complaint: Neoplasm Screening Narrative: Viktoriya Laurent is a 57 year old female presents for screening colonoscopy. Patient reports that she was found to have iron deficiency anemia. In April patient was hospitalized received an iron infusion as well as transfusion of 2un its of packed red blood cells. Hemoglobin was approximately 6.5. Patient is any obvious blood in stools. However 1 month ago did pass 2 clots. She denies abdominal pain. She has no rectal pain. Appetite has been good. She has no prior surgeries. Family history is noncontributory. Patient referred today for colonoscopy. Review of Systems 2 Review of Systems: Review of systems is noncontributory. [facility] Past Medical History Medical History Anemia Surgical History Surgical History History of partial hysterectomy Family History Family History Other Adopted Social History Social History (Updated 05/07/23 @ 11:16 by Lilliana Kelly MD) Social History: Has a son Smoking status: Never smoker Second hand tobacco smoke exposure: No Alcohol intake: current Drinks per week: 1 Alcohol use details: OCCASIONAL GLASS OF WINE Substance use: never Substance use type: does not use Lack of Transportation: No Lack of Food: Never True Current Housing: I Have Housing Concerned About Future Housing: No Difficulty Paying Gas/Electric Bills: No Difficulty Paying for Meds: No Currently Unemployed: No Education: Associate Degree Difficulty w/ Childcare or Family Care: No Living arrangements: with family Spiritual care concerns: No Meds Home Medications and Allergies Home Medications Medication Instructions Recorded Confirmed Type ferrous sulfate 325 mg (65 mg 325 mg PO DAILY #30 tabs 05/07/23 07/16/23 Rx iron) tablet Allergies Allergy/AdvReac Type Severity Reaction Status Date / Time No Known Allergies Allergy Verified 07/16/23 07:01 Exam Narrative: Physical exam reveals patient to be alert. Vital signs stable. HEENT exam is unremarkable. Patient is anicteric. Lungs are clear to auscultation and to per cussion. Heart is without murmur or extra sounds. Abdomen bowel sounds are present soft nontender with no organomegaly. Digital external rectal exam normal. Assessment and Plan Assessment and plan (1) SYMONE (iron deficiency anemia): Code(s): D50.9 - Iron deficiency anemia, unspecified Status: Acute Assessment and Plan: Patient found to have rather profound iron deficiency anemia. History of Transfusion of iron and blood. Plan for colonoscopy today. If no obvious explanation by this exam, then evaluation of the remainder of the GI tract (2) Encounter for screening colonoscopy: Code(s): Z12.11 - Encounter for screening for malignant neoplasm of colon Status: Acute Assessment and Plan: Patient has never had prior colonoscopy. Screening colonoscopy to be performed today.
[2023-07-16] MEDS: LACTATED RINGERS 1,000 ML 150 ML IV CONT (07:20)
[2023-07-16 08:39] VITALS: BP 102/70; PULSE 80; RESP 16; O2SAT 99
[2023-07-16 08:49] VITALS: BP 114/75; PULSE 78; RESP 20; O2SAT 100
[2023-07-16 08:59] VITALS: BP 128/74; PULSE 82; RESP 20; O2SAT 100
--- NOTE | 2023-07-16 11:17 | WPDANESPN ---
Anes - Prog Note Post-Op Date/Time: 07/16/23 11:17 Cardiovascular status: normal Respiratory status: normal Airway patency: baseline Mental status: baseline Post-Op hydration status: normal Vital Signs: Last Vital Signs Pulse 82 07/16/23 08:59 Resp 20 07/16/23 08:59 BP 128/74 07/16/23 08:59 Pulse Ox 100 07/16/23 08:59 O2 Del Method Room Air 07/16/23 08:59 Pain Score (VAS): 0 I/O: Intake & Output 07/15/23 07/16/23 07/16/23 23:59 07:59 15:59 Intake Total 300 Balance 300 Post-procedural complaints: none Patient Feedback: Patient satisfied with anesthetic care. Other Findings: Patient vital signs back to baseline. Patient denies nausea and vomiting. Patient's pain under control. Patient OK for discharge.
== END 2023-07-16 09:06 | disposition home or self-care (01) ==
PROVIDERS: PCP Family Medicine; Visit Provider Internal Medicine Gastroenterology
PROC: 0DJD8ZZ Inspection of Lower Intestinal Tract, Via Natural or Artificial Opening Endoscopic (ICD-10-PCS; CPT 45378; principal; 2023-07-16 08:30)
DX: Z12.11 Encounter for screening for malignant neoplasm of colon (principal); D50.9 Iron deficiency anemia, unspecified; K57.30 Diverticulosis of large intestine without perforation or abscess without bleeding; K64.8 Other hemorrhoids
CPT/HCPCS: 45378

== ENCOUNTER 2025-01-27 10:10 | Outpatient (CLI) | payer MEDICARE, SELFPAY ==
--- NOTE | ~2025-01-27 | XR_ITS ---
EXAMINATION: XR hand RT min 3V DATE: 01/27/2025 10:50 INDICATION: Injury 2 months ago. Pain persists TECHNIQUE: 4 images of the right hand were obtained. COMPARISON: None. FINDINGS: Moderate joint space narrowing in the first carpometacarpal joint, first metacarpophalangeal joint an d interphalangeal joint of the thumb. Several subcentimeter cystic region noted in the bones about th e first carpal metacarpal joint, first metacarpophalangeal joint and interphalangeal joint of the. Mild subluxation of the interphalangeal joint of the thumb. Moderate joint space narrowing in the PIP joint of the third digit with adjacent soft tissue swelling . Mild joint space narrowing in the PIP joint of the second digit and DIP joint of the third digit. No displaced fracture. IMPRESSION: Moderate joint space narrowing in the first carpometacarpal joint, first metacarpophalangeal joint an d interphalangeal joint of the thumb. Several nonspecific subcentimeter cystic regions noted in the b ones about the first carpometacarpal joint, first metacarpophalangeal joint and interphalangeal joint of the. Soft tissue swelling about the thumb. The findings may be secondary to recent trauma and/or an inflammatory process. Other etiologies are possible. Mild subluxation of the interphalangeal joint of the thumb. Moderate joint space narrowing in the PIP joint of the third digit with adjacent soft tissue swelling . Mild joint space narrowing in the PIP joint of the second digit and DIP joint of the third digit. No displaced fracture. Reviewed, dictated and finalized at location A. IMPRESSION: Moderate joint space narrowing in the first carpometacarpal joint, first metaca rpophalangeal joint and interphalangeal joint of the thumb. Several nonspecific subcentimeter cystic regions noted in the bones about the first carpometacarpa l joint, first metacarpophalangeal joint and interphalangeal joint of the. Soft tissue swelling about the thumb. The findings may be secondary to recent traum a and/or an inflammatory process. Other etiologies are possible. Mild subluxation of the interphalangeal joint of the thumb. Moderate joint space narrowing in the PIP joint of the third digit with adjacen t soft tissue swelling. Mild joint space narrowing in the PIP joint of the seco nd digit and DIP joint of the third digit. No displaced fracture.
--- OUTSIDE RECORDS SUMMARY | 2025-01-27 10:36 | XMS_ITS | Encounter Summary ---
Author Organization [facility] Care Team Providers Care Telephone Coin Box Collector Name Role Phone Eliazar Guillermo MD Primary Care Provider [phone] Francia Oliva MD Primary Care Provider + Griffin Brooke MD Unavailable [phone] Encounter Details Date Type Department Care Team (Latest Contact Info) Description 04/21/2017 Orders Only [facility] CLINCONV Provider, MD Chris [address] [place] [id number] Social History Tobacco Use Types Packs/Day Years Used Date Smoking Tobacco: Never Assessed Comments Unknown Sex and Gender Information Value Date Recorded Sex Assigned at Not on file Legal Sex Female 2:01 PM ASBESTOS COVERER Gender Identity Female 12/30/2021 10:11 AM CDT Sexual Orientation Straight 12/30/2021 10 :11 AM CDT documented as of this encounter Plan of Treatment Not on file documented as of this encounter Procedures Procedure Name Priority Date/Time Associated Diagnosis Comments SCAN - LABS 04/23/2017 12:00 AM ASBESTOS COVERER CARDIOLOGY REPORT 04/23/2017 12: 00 AM ASBESTOS COVERER documented in this encounter Results * SCAN - LABS (04/23/2017 12:00 AM ASBESTOS COVERER) Narrative 04/23/2017 12:00 AM ASBESTOS COVERER Ordered by an unspecified provider. Historical Provider Final Res ult * CARDIOLOGY REPORT (04/23/2017 12:00 AM ASBESTOS COVERER) Anatomical Region Laterality Modality Other Narrative 04/23/2017 12:00 AM ASBESTOS COVERER Ordered by an unspecified provider. Historical Provider CV CARDIAC SERVICES PROCE DURAUGUSTINE Final Result documented in this encounter Visit Diagnoses Not on filedocumented in this encounter Care Teams Telephone Coin Box Collector Relationship Specialty Start Date End Date Eliazar Guillermo MD PCP - General Family Practice 02/14/17 10/30/21 Francia Oliva MD [address] [place] [address] [address] [place] [address] PCP - General Family Medicine 10/31/21 Griffin Brooke MD [address] [facility] [address] [place] [address] Surgeon Vascular Surgery 07/24/23 documented as of this encounter
--- OUTSIDE RECORDS SUMMARY | 2025-01-27 10:36 | XMS_ITS | Clinical Summary ---
Author Organization [facility] Care Team Providers Care Assistant Credit Manager Name Role Phone Unavailable Primary Care Provider Unavailabl e Social History Tobacco Use Types Packs/Day Years Used Date Smoking Tobacco: Never Assessed Comments Unknown Sex and Gender Information Value Date Recorded Sex Assigned at Not on file Legal Sex Female 11:39 AM ASSISTANT CASE MANAGER Gender Identity Not on file Sexual Orientation Not on file Plan of Treatment Health Maintenance Due Date Last Done Comments Hepatitis C Virus (HCV) Screening 1966 TdaP Immunization 1966 Hepatitis B Immunization (1 of 3 - 19+ 3-dose series) 1985 Pap Smear 10/24/1987 Cervical Cancer Screening (CCS) 1996 HPV/Cotest 1996 Cologuard 10/24/2011 Colonoscopy 10/24/2011 Colorectal Cancer Screening 10/24/2011 Immunochemical Fecal Occult Blood 10/24/2011 Pneumococcal Immunization (5 0+ years) (1 of 1 - PCV) 2016 Zoster Immunization (1 of 2) 2016 SARS-COV-2 Immunization ( - season) 2024 Influenza Immunization (#1) 02/14/202503/16, 03/29/2016, 04/03/2015 Respiratory Syncytial Virus (RSV) Immunization (Adult) (1 - 1-dose 75+ series) 2041 Human Papillomavirus (HPV) Immunization Aged Out No longer eligible b ased on patient's age to complete this topic Meningococcal Immunization (ACWY) Aged Out No longer eligible b ased on patient's age to complete this topic Rotavirus Immunization Aged Out No lo nger eligible based on patient's age to complete this topic
--- OUTSIDE RECORDS SUMMARY | 2025-01-27 10:36 | XMS_ITS | Clinical Summary ---
Author Organization [facility] [address] [place] [address] Care Team Providers Care Mixing And Dispensing Supervisor Name Role Phone Francia Oliva MD Primary Care Provider + Griffin Brooke MD Unavailable [phone] Allergies Active Allergy Reactions Criticality Noted Date Comments Codeine Phosphate Stomach upset Low 06/18/2023 GI Methylprednisolone Stomach upset Low 06/18/2023 Stomach upset Medications omega 5-drk-cdl-fish oil 1,000 mg (120 mg-180 mg) capsule Take 1 capsule (1,000 mg total) by mouth 2 (two) times a day Active cholecalciferol (VITAMIN D-3) 2000 unit capsule Take 1 capsule (2,000 Units total) by mouth every morning Active UNABLE TO FIND Take 2 each by mouth 2 (two) times a day Med Name: Iron Horse's Wort 300 mg Active UNABLE TO FIND Take 2 each by mouth 2 (two) times a day Med Name: Ferrofood supplement Active UNABLE TO FIND Take 2 each by mouth 2 (two) times a day Med Name: ProSynbiotic supplement Active UNABLE TO FIND Take 2 each by mouth 2 (two) times a day Med Name: Total Beets tablets Active HYDROcodone-leny taminophen (NORCO) 5-325 mg per tabletIndicatio ns:Pain Take 1 tablet by mouth every 4 (four) hours as needed for pain 20 tablet 4 Active Additional Information Patient not taking.Reported on 07/28/2023 ondansetron (ZOFRAN) 4 mg tablet Take 1 tablet (4 mg total) by mouth every 8 (eight) hours as needed for nausea or vomiting 20 tablet 4 Active albuterol HFA (PROVENTIL HFA,VENTOLIN HFA,PROAIR HFA) 90 mcg/actuation inhaler INHALE 2 PUFFS BY MOUTH FOUR TIMES DAILY NEEDED FOR SHORTNESS OF BREATH OR WHEEZING 1 Active Active Problems Problem Noted Date Diagnosed Date Bilateral carpal tunnel syndrome 02/23/2024 Cubital tunnel syndrome 02/23/2024 Symptomatic varicose veins of both lower extremi ties 06/19/2023 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 We recommend faithful use of compression hose for the next 30 days. We'll repeat a venous Doppler when she returns in one month and likely plan phlebectomy of her residual bilateral lower extremity varicosities at that time. 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 Bilateral hand pain 05/21/2018 Abnormal liver enzymes 04/23/2017 Chest pain 04/23/2017 Nausea 04/23/2017 Other fatigue 04/23/2017 Immunizations Immunization Administration Dates Next Due Influenza, Quadrivalent, Danielle l Culture-based MDCK, Preservative Free, Antibiotic Free, Intramuscular 07/03/2021 Influenza, Trivalent, Preser vative Free, Intramuscular 03/29/2017,03/29/2016,04/03/2015 Influenza, Unspecified 07/02/2021 Surgical History Surgery Date Site/Laterality Comments WRIST ARTHROPLASTY CARPAL TUNNEL RELEASE 10/15/2015 - 11/14/2015 Bilateral VARICOSE VEIN SURGERY 07/09/2022 Bilateral Bilateral Lower Extremity Stab Avulsion phlebectomy VARICOSE VEIN SURGERY 07/24/2023 Bilateral Bilateral Leg Stab Phlebectomy Medical History Medical History Date Comments Leg swelling Varicose veins of both lower extremities Abnormal liver enzymes Fatigue Nausea 04/23/2017 Social History Tobacco Use Types Packs/Day Years Used Date Smoking Tobacco: Never Passive Smoke Exposure: Never Smokeless Tobacco: Never Tobacco Cessation:Counseling Given: Not Answered AUDIT-C Answer Date Recorded Q1: How often do you have a drink containing alc ohol? 2-3 times a week 08/25/2023 Q2: How many drinks containi ng alcohol do you have on a typical day when you are drinking? 1 or 2 08/25/2023 Q3: How often do you have si x or more drinks on one occasion? Never 08/25/2023 Personal Safety Answer Date Recorded Have you ever been in or are you currently in a harmful physical or emotional relationship or is someone making you feel afraid or unsafe? Denies 07/24/2023 Comments No Sex and Gender Information Value Date Recorded Sex Assigned at Not on file Legal Sex Female 2:01 PM METALLURGIST PROCESS Gender Identity Female 12/30/2021 10:11 AM CDT Sexual Orientation Straight 12/30/2021 10 :11 AM CDT Obstetrics History Last Filed Vital Signs Vital Sign Reading Time Taken Comments Blood Pressure 133/85 08/25/2023 10:57 AM CDT Pulse 71 08/25/2023 10:57 AM CDT Temperature 36.2 C (97.1 F) 08/25/2023 10:57 AM CDT Respiratory Rate 12 07/24/2023 1:05 PM METALLURGIST PROCESS Oxygen Saturation 99% 07/28/2023 10:00 AM METALLURGIST PROCESS Inhaled Oxygen Concentration - - Weight 57.6 kg (127 lb) 08/25/2023 10:57 AM CDT Height 165.1 cm (5' 5) 08/25/2023 10:57 AM CDT Body Mass Index 21.13 08/25/2023 10:57 AM CDT Plan of Treatment Health Maintenance Due Date Last Done Comments Breast Cancer Screening-Mammogram 1966 Colon Cancer Screening-Colonoscopy 1966 Depression Screening 1966 Hepatitis C Screening 1966 DTaP/Tdap/Td Vaccine (1 - Tdap) 1977 Hepatitis B Screening 1984 Regular Well Visit/Exam 18-64 1984 Zoster Vaccine (1 of 2) 2016 Covid-19 Vaccine ( season) 2024 04/17/2021, 08/22/2020 Influenza Vaccine (#1) 2025 2, 07/02/2021, 03/29/2017, Additional history exists Pneumococcal vaccine <65 Aged Out No longer eligible based on patient's age to complete this topic Insurance [facility] HMO [facility] Address: [address] [address] [place] [address] [employer] [facility] MEDICARE [facility] Address: [address] [address] [place] [address] [employer] [facility] MEDICARE [facility] Address: [address] [address] [place] [address] Care Teams Mixing And Dispensing Supervisor Relationship Specialty Start Date End Date Francia Oliva MD [address] [place] [address] [place] [address] PCP - General Family Medicine 10/31/21 Griffin Brooke MD [address] [address] Surgeon Vascular Surgery 07/24/23
--- OUTSIDE RECORDS SUMMARY | 2025-01-27 10:36 | XMS_ITS | Encounter Summary ---
Author Organization [facility] Care Team Providers Care Kitchenwhere Maker Name Role Phone Eliazar Guillermo MD Primary Care Provider [phone] Francia Oliva MD Primary Care Provider + Griffin Brooke MD Unavailable [phone] Encounter Details Date Type Department Care Team (Latest Contact Info) Description 04/25/2011 Orders Only [facility] CLINCONV Provider, MD Chris [address] [place] [address] Social History Tobacco Use Types Packs/Day Years Used Date Smoking Tobacco: Never Assessed Comments Unknown Sex and Gender Information Value Date Recorded Sex Assigned at Not on file Legal Sex Female 2:01 PM DEALER COMPLIANCE REPRESENTATIVE Gender Identity Female 12/30/2021 10:11 AM CDT Sexual Orientation Straight 12/30/2021 10 :11 AM CDT documented as of this encounter Plan of Treatment Not on file documented as of this encounter Procedures Procedure Name Priority Date/Time Associated Diagnosis Comments SCAN - LABS 04/23/2017 12:00 AM DEALER COMPLIANCE REPRESENTATIVE documented in this encounter Results * SCAN - LABS (04/23/2017 12:00 AM DEALER COMPLIANCE REPRESENTATIVE) Narrative 04/23/2017 12:00 AM DEALER COMPLIANCE REPRESENTATIVE Ordered by an unspecified provider. us Historical Provider MD Final Res ult documented in this encounter Visit Diagnoses Not on filedocumented in this encounter Care Teams Kitchenwhere Maker Relationship Specialty Start Date End Date Eliazar Guillermo MD PCP - General Family Practice 02/14/17 10/30/21 Francia Oliva MD [address] [place] [address] [address] [place] [address] PCP - General Family Medicine 10/31/21 Griffin Brooke MD [address] [facility] [address] [place] [address] Surgeon Vascular Surgery 07/24/23 documented as of this encounter
--- OUTSIDE RECORDS SUMMARY | 2025-01-27 10:36 | XMS_ITS | Patient Health Record ---
Author Organization [facility] [employer] [facility] Address [address] [place] [address] Care Team Providers Care Real Estate Leasing Manager Name Role Phone Italia Mercedes Unavailable [phone] Reason For Referral No Information Medications Medication SIG (Take, Route, Frequency, Duration) Notes Start Date End Date Status GaviLyte-C 240-22.72-6.72 -5.84 gram Oral *Pick strength-form from BF Commoditiesspan for eRX* 05/23/2023 Active Iron (Ferrous Sulfate) *Pick strength-form from Medispan for eRX* 05/23/2023 Active Dicyclomine HCl 20 MG Oral 05/23/2023 Active HYDROcodone-Acetamino phen 5-325 MG Oral 05/23/2023 Active Twabcosw-Dsjiuppib-Ga xameth 3.5-58404-8.1 Ophthalmic 05/23/2023 Active Ondansetron HCl 4 MG Oral 05/23/2023 Active Plan Of Treatment No Information Insurance Providers Payer Name Payer Address Payer Phone Subscriber Number Group Number Insured Name Patient Relationship to Insured Coverage Start Date Coverage End Date [employer] Medicare Replacement/ Advantage - [place]mo [address] [address] [place] [address] [id number] MITESH HO Self - patient is the insured Medical (General) History Surgical History Surgery Date(Month/Year) Tonsilectomy/adenoids 06/16/1974 Hysterectomy (09882) 11/14/2000
--- OUTSIDE RECORDS SUMMARY | 2025-01-27 10:36 | XMS_ITS | Clinical Summary ---
Author Organization [facility] [employer] Address [address] [facility] [place] [address] Care Team Providers Care Baby Formula Mixer Name Role Phone Eliazar Guillermo MD Primary Care Provider [phone] Source Comments [facility],non-owned Affiliates and Associated Physician Practices is amultiple site organization consisting of ambulatory clinics and hospital sitesin [place], [place], [place] and [place]. This disclosure is being madepursuant to the Care Everywhere program and may not contain all information available regarding this patient. Last updated 18.[facility] Allergies No known active allergies Medications * Be aware that medications may not be up to date on this document. Alwaysverify current medications with the patient. albuterol HFA (PROVENTIL; VENTOLIN; PROAIR) 108 (90 Base) MCG/ACT inhalerIndicati ons:Alopecia INHALE 2 PUFFS BY MOUTH FOUR TIMES DAILY NEEDED FOR SHORTNESS OF BREATH OR WHEEZING 1 Active FEROSUL 325 (65 Fe) MG tablet Take 1 (one) tablet by mouth once daily 2 Active zinc oxide (Denae's) 40 % ointmentIndicat ions:Angular cheilitis Apply to affected area as needed for Other 113 g 2 3 Active hydrocortisone (Hytone) 2.5 % ointmentIndicat ions:Angular cheilitis Apply to corner of mouth twice daily. 30 days supply. 30 g 2 3 Active nystatin (Mycostatin) 384449 UNIT/GM creamIndication s:Angular cheilitis Apply to corner of mouth 2-3 times daily. 30 days supply. 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 Bilateral hand pain 05/21/2018 Bilateral carpal tunnel syndrome Cubital tunnel syndrome Immunizations Immunization Administration Dates Next Due FLU VACCINE TRI IIV3 SPLIT PF IM (FLUVIRIN) 03/16,03/29/2016,04/03/2015 INFLUENZA VACCINE 07/02/2021 Social History Tobacco Use Types Packs/Day Years Used Date Smoking Tobacco: Never Smokeless Tobacco: Never Tobacco Cessation:Counseling Given: Not Answered Alcohol Use Standard Drinks/Week Comments Yes 0 (1 standard drink = 0.6 oz pur e alcohol) Comments No Sex and Gender Information Value Date Recorded Sex Assigned at Not on file Legal Sex Female 6:46 PM MANAGER LATIN Gender Identity Not on file Sexual Orientation Not on file Last Filed Vital Signs Vital Sign Reading Time Taken Comments Blood Pressure 126/80 10/16/2021 1:18 PM CDT Pulse 90 10/16/2021 1:18 PM CDT Temperature 36.7 C (98 F) 10/16/2021 1:18 PM CDT Respiratory Rate 16 10/16/2021 1:18 PM CDT Oxygen Saturation 97% 10/16/2021 1:18 PM CDT Inhaled Oxygen Concentration - - Weight 59.9 kg (132 lb) 10/16/2021 1:18 PM CDT Height 165.1 cm (5' 5) 10/16/2021 1:18 PM CDT Body Mass Index 21.97 10/16/2021 1:18 PM CDT Plan of Treatment Health Maintenance Due Date Last Done Comments COLOGUARD (AGES 45-75) - COLON CA SCREENING 1966 COLON MONITORING 1966 COLONOSCOPY - COLON CA SCREENING 1966 CT COLONOGRAPHY - COLON CA SCREENING 1966 Colorectal Cancer Screening 1966 FIT - COLON CA SCREENING 1966 FLEX SIG - COLON CA SCREENING 1966 LIPID TESTING 1966 MAMMOGRAM 1966 HIV SCREENING 1981 HEPATITIS C SCREENING 10/18/1984 DTAP/TDAP/TD VACCINES (1 - Tdap) 1985 HEPATITIS B VACCINE (1 of 3 - 19+ 3-dose series) 1985 PAP SMEAR 10/24/1987 PNEUMOCOCCAL VACCINE 50+ (1 of 1 - PCV) 2016 ZOSTER VACCINE (1 of 2) 2016 COVID-19 VACCINE (3 - season) 2024 04/17/2021, 08/22/2020 DEPRESSION SCREENING 06/16/2024 MEDICARE AWV CALENDAR YEAR 2024 INFLUENZA VACCINE (#1) 2025 3, 07/03/2021, 07/02/2021, Additional history exists HIB VACCINE Aged Out No longer eligi ble based on patient's age to complete this topic HPV VACCINE Aged Out No longer eligi ble based on patient's age to complete this topic MENINGOCOCCAL (Group B) VACCINE SHARED DECISION-MAKING Aged Out No longer eligible based on patient's age to complete this topic MENINGOCOCCAL GROUPS A/C/Y/W VACCINE Aged Out No longer eligible based on patient's age to complete this topic Insurance [facility] MANAGED MEDICARE ADV [facility] MANAGED MEDICARE ADV MEDICAID - OUT OF STATE Care Teams Baby Formula Mixer Relationship Specialty Start Date End Date Eliazar Guillermo MD [address] [facility], [place] [id number] PCP - General 01/11/22
--- OUTSIDE RECORDS SUMMARY | 2025-01-27 10:37 | XMS_ITS | Encounter Summary ---
Author Organization [facility] Address 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
--- OUTSIDE RECORDS SUMMARY | 2025-01-27 10:37 | XMS_ITS | Clinical Summary ---
Author Organization [facility] Address [address] [place] [address] Care Team Providers Care General Ledger Bookkeeper Name Role Phone Unavailable Primary Care Provider Unavailabl e Immunizations Immunization Administration Dates Next Due [employer] ([employer]) COVID-19 AD26 VACCINE 0.5 ML IM SUSP 04/17/2021,08/22/2020 Social History Tobacco Use Types Packs/Day Years Used Date Smoking Tobacco: Never Assessed Comments Unknown Sex and Gender Information Value Date Recorded Sex Assigned at Not on file Legal Sex Female 7:19 PM CDT Gender Identity Not on file Sexual Orientation Not on file Plan of Treatment Health Maintenance Due Date Last Done Comments Cervical Cancer Screening Pa p Smear (Age 30 to 64) Every 3 Years 1966 Colorectal Cancer Screening Colonoscopy (10 Years) 1966 Annual Physical 1969 Hepatitis C 1984 DTaP, Tdap and Td Vaccines ( 1 - Tdap) 1985 Hepatitis B Vaccines (1 of 3 - 19+ 3-dose series) 1985 Cervical Cancer Screening Pa p with HPV Testing (Age 30 to 64) Every 5 Years 1996 Cervical Cancer Screening wi th HPV 1996 Mammogram Screening 2006 Pneumococcal Vaccine: 50+ Years (1 of 1 - PCV) 2016 Zoster Vaccines (1 of 2) 2016 COVID-19 Vaccine (2023-2 5 season) 2024 04/17/2021, 08/22/2020 Meningococcal B Vaccine Aged Out No l onger eligible based on patient's age to complete this topic Meningococcal Vaccine Aged Out No brianne michael eligible based on patient's age to complete this topic RSV Immunizations Under 20 Months Aged Out No longer eligible b ased on patient's age to complete this topic
--- OUTSIDE RECORDS SUMMARY | 2025-01-27 10:37 | XMS_ITS | Encounter Summary ---
Author Organization [facility] Address [address] [place] [address] Care Team Providers Care Usability Strategist Name Role Phone Gordon Butler MD Primary Care Provider Unavailab le Encounter Details Date Type Department Care Team (Late st Contact Info) Description 10/07/2000 Outpatient Historical [facility] PATIENT IN A BED [place], Yan Feliciano MD [address] [facility] [address] [place] [address] Threatened premature labor, antepartum(644.03) (Primary Dx) Social History Tobacco Use Types Packs/Day Years Used Date Smoking Tobacco: Never Assessed Comments Unknown Sex and Gender Information Value Date Recorded Sex Assigned at Not on file Legal Sex Female 4:17 AM LIBRARY PAGE Gender Identity Not on file Sexual Orientation Not on file documented as of this encounter Plan of Treatment Not on file documented as of this encounter Visit Diagnoses Diagnosis Threatened premature labor, antepartum(644.03)- Primary Threatened premature labor, antepartum documented in this encounter Care Teams Usability Strategist Relationship Specialty Start Date End Date Gordon Butler MD NO ADDRESS ON FILE PCP - General 09/11/00 documented as of this encounter
--- OUTSIDE RECORDS SUMMARY | 2025-01-27 10:37 | XMS_ITS | Encounter Summary ---
Author Organization [facility] Address [address] [place] [address] Care Team Providers Care Facility Attendant Name Role Phone Gordon Butler MD Primary Care Provider Unavailab le Encounter Details Date Type Department Care Team (Late st Contact Info) Description 09/16/2000 Outpatient Historical [facility] PATIENT IN A BED [place] MD [address] [facility] [address] [place] [address] Other specified complication, antepartum(646.83) (Primary Dx) Social History Tobacco Use Types Packs/Day Years Used Date Smoking Tobacco: Never Assessed Comments Unknown Sex and Gender Information Value Date Recorded Sex Assigned at Not on file Legal Sex Female 4:17 AM PROCESS SAFETY ENGINEER Gender Identity Not on file Sexual Orientation Not on file documented as of this encounter Plan of Treatment Not on file documented as of this encounter Visit Diagnoses Diagnosis Other specified complication, antepartum(646.83)- Primary Other specified complication, antepartum documented in this encounter Care Teams Facility Attendant Relationship Specialty Start Date End Date Gordon Butler MD NO ADDRESS ON FILE PCP - General 09/11/00 documented as of this encounter
--- OUTSIDE RECORDS SUMMARY | 2025-01-27 10:37 | XMS_ITS | Encounter Summary ---
Author Organization [facility] Address [address] [place] [address] Care Team Providers Care Pharmacy Informaticist Name Role Phone Gordon Butler MD Primary Care Provider Unavailab le Encounter Details Date Type Department Care Team (Late st Contact Info) Description 09/11/2000 Outpatient Historical [facility] PATIENT IN A BED [place], Yan Feliciano MD [address] [facility] [address] [place] [address] Threatened premature labor, antepartum(644.03) (Primary Dx) Social History Tobacco Use Types Packs/Day Years Used Date Smoking Tobacco: Never Assessed Comments Unknown Sex and Gender Information Value Date Recorded Sex Assigned at Not on file Legal Sex Female 4:17 AM ENGINEERING AND OPERATIONS DIRECTOR Gender Identity Not on file Sexual Orientation Not on file documented as of this encounter Plan of Treatment Not on file documented as of this encounter Visit Diagnoses Diagnosis Threatened premature labor, antepartum(644.03)- Primary Threatened premature labor, antepartum documented in this encounter Care Teams Pharmacy Informaticist Relationship Specialty Start Date End Date Gordon Butler MD NO ADDRESS ON FILE PCP - General 09/11/00 documented as of this encounter
--- OUTSIDE RECORDS SUMMARY | 2025-01-27 10:37 | XMS_ITS | Clinical Summary ---
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 Gender Identity Not on file Sexual Orientation Not on file Plan of Treatment Health Maintenance Due Date Last Done Comments DTAP/TDAP/TD VACCINES (1 - Tdap) 1985 HEPATITIS B VACCINES (1 of 3 - 19+ 3-dose series) 10/14 HPV/Cotest (21-29) 10/24/1987 CERVICAL CANCER SCREENING 1996 HPV/Cotest (30-65) 1996 PAP SMEAR 1996 BREAST CANCER SCREENING 2006 COLORECTAL SCREENING 10/24/2011 Colorectal Cancer Screening 10/24/2011 FIT-DNA Q 3 years 10/24/2011 FIT/FOBT Q 1 year 10/24/2011 Flex Sig/CT Colonography Q 5 years 10/24/2011 ZOSTER VACCINE (1 of 2) 2016 INFLUENZA VACCINE (#1) 2025 Care Teams Data Processing Consultant Relationship Specialty Start Date End Date Gordon Butler MD NO ADDRESS ON FILE PCP - General 09/11/00
--- OUTSIDE RECORDS SUMMARY | 2025-01-27 10:37 | XMS_ITS | Encounter Summary ---
Author Organization [facility] Address [address] [place] [address] Care Team Providers Care Carpet Or Rug Layer Helper Name Role Phone Gordon Butler MD Primary Care Provider Unavailab le Encounter Details Date Type Department Care Team (Late st Contact Info) Description 11/01/2000 Outpatient Historical [facility] PATIENT IN A BED [place], Yan Feliciano MD [address] [place] [address] [place] [address] Other threatened labor, antepartum (Primary Dx) Social History Tobacco Use Types Packs/Day Years Used Date Smoking Tobacco: Never Assessed Comments Unknown Sex and Gender Information Value Date Recorded Sex Assigned at Not on file Legal Sex Female 4:17 AM CLAIMS ADJUDICATOR Gender Identity Not on file Sexual Orientation Not on file documented as of this encounter Plan of Treatment Not on file documented as of this encounter Visit Diagnoses Diagnosis Other threatened labor, antepartum- Primary documented in this encounter Care Teams Carpet Or Rug Layer Helper Relationship Specialty Start Date End Date Gordon Butler MD NO ADDRESS ON FILE PCP - General 09/11/00 documented as of this encounter
--- OUTSIDE RECORDS SUMMARY | 2025-01-27 10:37 | XMS_ITS | Encounter Summary ---
Author Organization [facility] Address [address] [place] [address] Care Team Providers Care Brass Bobbin Winder Name Role Phone Gordon Butler MD Primary Care Provider Unavailab le Encounter Details Date Type Department Care Team (Late st Contact Info) Description 01/02/2007 Outpatient Historical [facility] MARQUISE Akbar, Yan Feliciano MD [address] [place] [address] [place] [address] Abnormal Mammogram, Unspecified (Primary Dx) Social History Tobacco Use Types Packs/Day Years Used Date Smoking Tobacco: Never Assessed Comments Unknown Sex and Gender Information Value Date Recorded Sex Assigned at Not on file Legal Sex Female 4:17 AM CHIEF MEDICAL TECHNOLOGIST Gender Identity Not on file Sexual Orientation Not on file documented as of this encounter Plan of Treatment Not on file documented as of this encounter Visit Diagnoses Diagnosis Abnormal mammogram, unspecified- Primary documented in this encounter Care Teams Brass Bobbin Winder Relationship Specialty Start Date End Date Gordon Butler MD NO ADDRESS ON FILE PCP - General 09/11/00 documented as of this encounter
--- OUTSIDE RECORDS SUMMARY | 2025-01-27 10:37 | XMS_ITS | Encounter Summary ---
Author Organization [facility] Address [address] [place] [address] Care Team Providers Care Senior Mechanical Designer Name Role Phone Gordon Butler MD Primary Care Provider Unavailab le Encounter Details Date Type Department Care Team (Late st Contact Info) Description 11/03/2000 Inpatient Historical [facility] PATIENT IN A BED HarrisonYan MD [address] [facility] [address] [place] [address] First-degree perineal laceration, with delivery (Primary Dx) Social History Tobacco Use Types Packs/Day Years Used Date Smoking Tobacco: Never Assessed Comments Unknown Sex and Gender Information Value Date Recorded Sex Assigned at Not on file Legal Sex Female 4:17 AM LEAD SPRINKLER Gender Identity Not on file Sexual Orientation Not on file documented as of this encounter Plan of Treatment Not on file documented as of this encounter Visit Diagnoses Diagnosis First-degree perineal laceration, with delivery- Primary documented in this encounter Care Teams Senior Mechanical Designer Relationship Specialty Start Date End Date Gordon Butler MD NO ADDRESS ON FILE PCP - General 09/11/00 documented as of this encounter
--- OUTSIDE RECORDS SUMMARY | 2025-01-27 10:37 | XMS_ITS | Encounter Summary ---
Author Organization [facility] Address [address] [place] [address] Care Team Providers Care Extrusion Die Coordinator Name Role Phone Gordon Butler MD Primary Care Provider Unavailab le Encounter Details Date Type Department Care Team (Late st Contact Info) Description 09/11/2000 Outpatient Historical [facility], [address] Yan Akbar MD [address] [place] [address] Laboratory examination (Primary Dx) Social History Tobacco Use Types Packs/Day Years Used Date Smoking Tobacco: Never Assessed Comments Unknown Sex and Gender Information Value Date Recorded Sex Assigned at Not on file Legal Sex Female 4:17 AM ONLINE ACTIVIST Gender Identity Not on file Sexual Orientation Not on file documented as of this encounter Plan of Treatment Not on file documented as of this encounter Visit Diagnoses Diagnosis Laboratory examination- Primary documented in this encounter Care Teams Extrusion Die Coordinator Relationship Specialty Start Date End Date Gordon Butler MD NO ADDRESS ON FILE PCP - General 09/11/00 documented as of this encounter
== END 2025-01-27 10:11 | disposition home or self-care (01) ==
PROVIDERS: PCP Family Medicine; Visit Provider Family Medicine
DX: S69.91XA Unspecified injury of right wrist, hand and finger(s), initial encounter (principal); X58.XXXA Exposure to other specified factors, initial encounter
CPT/HCPCS: 73130